=== PATIENT | male | born 1985 | race Caucasian/White ===

== ENCOUNTER 2016-09-11 04:15 | Inpatient (IN) | payer OTHER ==
--- NOTE | 2016-09-06 14:55 | History & Physical Pre-Op ---
General Information and HPI MD Statement: I have seen and personally examined MONY LIN and documented this H&P. The patient is a 30 year old M who presented with a patient stated chief complaint of [excruciating back pain and right leg pain over years duration This began on the morning without any definite trauma. It initially started in the back. This is accompanied by a gradual onset of pain in his right leg down to his foot]. Source of Information: patient Exam Limitations: no limitations History of Present Illness: Similarly no definite trauma with back pain, which he felt was divided with sleeping Betley, this was accompanied by gradual onset of pain in his right leg down to his foot. His symptoms are worse with bending sitting and lying improve with medication. He complains of tingling down his right leg and foot. He denies any bowel bladder or sexual dysfunction. He underwent physical therapy from December 2015 and a series of injections which appeared to be less successful As time went on. Allergies/Medications Allergies: Coded Allergies: NO KNOWN ALLERGIES (09/05/16) Home Med list Azilsartan Med/Chlorthalidone (Edarbyclor 40-12.5 MG Tablet) 40 MG-12.5 MG TABLET 1 TAB PO DAILY BP (Reported) Cyclobenzaprine HCl 10 MG TABLET 1 TAB PO PRN SPASMS (Reported) Ibuprofen/Famotidine (Duexis 800-26.6 MG Tablet) 800 MG-26.6 MG TABLET 1 TAB PO AD PAIN (Reported) Tramadol HCl 50 MG TABLET 1 TAB PO PRN PAIN (Reported) Compliance With Home Meds: UNKNOWN Past History Medical History Blood Transfusion Hx: No Type of Reaction: Anaphylaxis (none) Neurological: see H&P EENT: NONE Cardiovascular: NONE Respiratory: NONE Gastrointestinal: NONE Hepatic: NONE Renal: NONE Musculoskeletal: NONE Psychiatric: NONE Endocrine: NONE Blood Disorders: NONE (1 mL) Cancer(s): NONE INTERNATIONAL MANAGER/Reproductive: NONE Other Medical Hx: None Of significance History of MRSA: No History of VRE: No History of CDIFF: No Isolation History: Standard Pneumonia Vaccine Status: Unknown if ever received Influenza Vaccine Status Unknown if ever received Tetanus Status: up to date Surgical History Pertinent Surgical History: none Past Family/Social History Psychosocial History Where Do You Live? Home Who Do You Live With? self Services at Home None Primary Language: Thai Smoking Status: Current Everyday Smoker ETOH Use: occasional use (5 drinks a week) Illicit Drug Use: denies illicit drug use Living Will? unknown Power of Hearing Screener/HCP? unknown Name of POA/HCP: Dr. Dick Other Social History: None Functional Ability ADLs Independent: dressing. Ambulation: independent IADLs Independent: shopping. Employment History Employment: Employed Profession/Employer: [employer] Review of Systems Review of Systems: Normal bowel bladder Review of Systems Constitutional: Reports: no symptoms. EENTM: Reports: no symptoms. Cardiovascular: Reports: no symptoms. Respiratory: Reports: no symptoms. GI: Reports: no symptoms. Genitourinary: Reports: no symptoms. Musculoskeletal: Reports: no symptoms. Skin: Reports: no symptoms. Neurological/Psychological: Reports: other (sciatica). Hematologic/Endocrine: Denies: no symptoms. Immunologic/Allergic: Denies: no symptoms. All Other Systems: Reviewed and Negative Colonoscopy Testing Status: Unknown if test ever done Comments His symptomatology is purely spinal Exam & Diagnostic Data Last 24 Hrs of Vital Signs/I&O Intake & Output 09/06 1600 09/06 0800 09/06 0000 Intake Total Output Total Balance Patient 160 lb Weight Physical Exam: Not available Physical Exam General Appearance Alert, Oriented X3, Cooperative, Moderate Distress Skin No Rashes HEENT Atraumatic Neck Supple Lymphatic Axillary nl Cardiovascular Regular Rate Lungs Clear to Auscultation Abdomen Soft Neurological Normal Speech, Normal Tone, decreased range of motion bending of his back. He is able to stand heels and tiptoes. Right extensor hallucis longus. Straight leg raising on the right manifested as back pain Extremities No Clubbing Vascular Normal Pulses Breasts noncontributory Reproductive (MALE) Normal male genitalia Rectal deferred Last 24 Hrs of Labs/César: INR and PTT within normal limits Diagnostic Data ITS Data Unobtainable at this time (O) EKG Results C medical clearance CXR Results no Lesions Other Results MRI shows that have been disc at L4 5 L5-S1, this disc left-sided L4-L5 and right-sided L5-S1 Assessment/Plan Assessment/Plan: #1-spondylosis L4 5 L5-S1 #2- sciatica As Ranked By This Provider Problem List: 1. Headache 2. Corneal abrasion due to contact lens Assessment/Plan #1 spondylolisthesis L4 5 L5-S1 #2 sciatica right sided Attending MD Review Statement Attending Statement Attending MD Statement: examined this patient, reviewed images Attending Assessment/Plan: This patient has been examined by me and discussed indications for surgery alternative risks and possible complications decided to proceed with this
[~2016-09-11] VITALS: Ht 172.7 cm; Wt 72.6 kg
[~2016-09-11 04:15] MED LIST: CYCLOBENZAPRINE10 M1 PO; DUEXIS 800-26.1 EACH PO; EDARBYCLOR 40-1 EACH PO; TRAMADOL HCL50 M1 PO
--- NOTE | 2016-09-11 15:09 | Operative Report ---
Operative/Inv Procedure Report Surgery Date: 09/11/16 Name of Procedure: 1 left hemilaminectomy L4-5 with mesial facetectomy enlarged foraminotomy 2 preparation of space for fusion L4 5 3 insertion of TLIF fusion cage, tit FRANSISCO a Pre-Operative Diagnosis: #1 lumbar spondylosis L4 5 L5-S1 #2 lumbar radiculopathy S1, consecutive 2 spondylosis #3 lumbar instability L4 5 L5-S1 Post-Operative Diagnosis: Same Estimated Blood Loss: 200cc Surgeon/Rn Homecare: MD Georgie Jaffe MD(cosurgeon) Anesthesia: general endotracheal tube Monitors: Neurophysiology monitoring from neuro alert IV Fluids: As per anesthesia Implants: #1 11 x 26 x 4 TITAN cage at L4 5 #2 11 x 22 x 4 Titan cage at L5-S1 #3 pedicle screws as per Georgie Hatch MD's note Urine Output: As per anesthesia Drains: 2 Hemovacs Specimens: HNP L4 5 and L5-S1 Microbiology: Urine Tourniquet: None. Complications: None Condition: Stable Operative Indication: 40-year-old male with long-standing history of mechanical back pain complicated by some element of right sided radiculopathy Was noted to have a right disc herniation at L5-S1 and central disc herniation at L4 5 however the greater part of his symptoms as probably due to instability and collapse on the spondylotic basis at L4-L5 and L5-S1 Indication for surgery alternative risks and possible complications were discussed at length patient elected to have surgery performed O guarantees given all questions answered Operative/Procedure Note Note: The patient was intubated supine then placed prone on the Curtis table with all the surfaces required being verified and all pressure points were controlled. The patient received 2 g of intravenous antibiotics. He was under continuous neurophysiological monitoring. The back was prepped and draped in usual sterile manner and incised with the plasma blade knife and sharp dissection was carried down to the aponeurosis and dissection was then carried out on both sides of the aponeurosis in a subperiosteal fashion onto the lamina over the facets and onto the transverse processes of L4-L5 and the alae of the sacrum bilaterally A film was obtained showing a marker under the TRAM spinous process and the lamina of L5 Attention was then directed to the left side at L4 5 where using 3 and 4 mm Kerrisons a very wide hemilaminectomy was then performed with extension into the medial facet were medial facetectomy was performed and likewise down to the foramen were very wide foraminotomy was accomplished. Following that the ligamentum flavum was removed Libby retraction allowed us to identify the herniated disc which was then cauterized and incised and disc material removed with straight and up-biting pituitary and sent for specimen Following this the size of the space was verified with the appropriate dilators from the tightened system and this was carried on at the same time that cutting device side of the same instrument was used to remove more soft tissue. It was felt that this would tolerate an 11 mm cage. Points aggressive curettes were used to prepare the surfaces for fusion and the space was then trialed with an 11 mm trial and verified to be the correct size. The knee master graft sponge was then reconstituted with 3 mL of the patient's own blood and partially used to pack the space anterior to the cage. Under C-arm visualization and continuous neurophysiological monitoring a 11 x 26 x 4 Titan cage was then inserted in the standard fashion and verified to be in all projections to be in satisfactory position and this was done without any changes in the neurophysiological recordings Following this a similar procedure was then accomplished on the right-hand side at L5-S1 this will be dictated by Georgie Hatch MD. Following this the Stealth was registered and under Stealth guidance pedicle screws were inserted into L4- L5 and S1 bilaterally. The surface of the transverse processes and the lateral aspect of the spine at L4-L5 and S1 were drilled down and prepared for fusion autograft and allograft masses were then created and placed laterally the pedicle screws was inserted were connected to miguel after verifying the integrity and once this was accomplished vancomycin powder was left in both gutters Hemovac drains were left side of the midline with an epidural component and the muscle was closed in depth with 0 Dexon muscle and aponeurosis 0 Dexon subcutaneous and subcuticular tissue with 2-0 Dexon after placing more vancomycin on the aponeurotic surface in the skin was closed with stainless steel oral a full dressing was applied and the patient was in satisfactory condition upon removal to the recovery room. Findings: 1 exploration P as described above to gross instability at [facility] pronounced at L5-S1 on placement of dilators Discharge Disposition: PACU Additional Comments: Neurophysiological tracings remained normal apart on one of the screws and this will be dictated separately CC: STEVE MATUTE,GEORGIE Eisenberg
--- NOTE | 2016-09-11 15:41 | RADIOLOGY REPORT ---
EXAMINATION: XR LUMBOSACRAL SPINE XR LUMBOSACRAL SPINE CLINICAL INFORMATION: 30-year-old male undergoing L4 - during performance of L4-L5 and L5-S1 laminectomy and fusion in the operating room. COMPARISON: MRI of lumbar spine, 08/30/2016. TECHNIQUE: Fluoroscopic imaging assistance was provided to the operating room. AP and lateral spot fluoroscopy images of the lumbar spine are submitted into the electronic picture archive. Also, intraoperative CT imaging of the lumbar spine was performed. FINDINGS: Lumbosacral spine: The spot fluoroscopy images demonstrate soft tissue retractors and placement of interbody fusion devices at L4-L5 and L5-S1. FLUOROSCOPY TIME was 1 minute. Dose was 17.2 mGy. Lumbosacral spine: The intraoperative CT images demonstrate left L4 laminectomy and bilateral L5 laminectomy defects, status post placement of interbody fusion devices at L4-L5 and L5-S1. There is postoperative gas within the paraspinal soft tissues and epidural space of the lower lumbar spine without evidence of epidural hematoma. FLUOROSCOPY TIME was 9.85 sec. DAP was 386.82 Rcm2. IMPRESSION: Fluoroscopic imaging assistance was provided to the operating room during performance of lower lumbar laminectomies and spinal fusion. Please refer to the operative report.
--- NOTE | 2016-09-11 16:39 | Admission Core Measures ---
Acute Coronary Syndrome Inclusion Criteria ACS Diagnosis No Inpatient Core Measures LDL Reminder: If No, please order W/I first 24hr of stay Congestive Heart Failure Inclusion Criteria CHF Diagnosis No Cerebrovascular accident Inclusion Criteria CVA/TIA Diagnosis No Inpatient Core Measures Bedside Swallow Eval Reminder: If BSE failed, place ST order Antithrombotic Reminder: Order Antithrombotic Medication by end of day 2 Antithrombotic Reminder: Document Reason Antithrombotic Not ordered by end of day 2 AFIB/Flutter Reminder: If Present, add to problem list AFIB/Flutter Reminder: Order Anticoag Medication for pts with AFIB/Flutter Atherosclerosis Reminder: If Present, add to problem list LDL Reminder: If No, please order W/I first 24hr of stay PT Order Reminder: If No, please order Venous thromboembolism Inpatient Core Measures VTE Risk Factors: Surgery VTE Prophylaxis Ordered Inpt Mechanical (ALPS/TEDS) No [facility] VTE prophylaxis d/t No contraindications No VTE Pharm Prophylaxis d/t Surgical contraindication Inclusion Criteria - Per Current guidelines, there needs to be overlap - treatment for the first 5 days of Warfarin therapy. - Parenteral Anticoagulation (IV or SC) needs to be - given along with Warfarin therapy. VTE Diagnosis No VTE Type NONE VTE Confirmed by (Test) NONE Problem List As ranked by this Provider includes Assessment & Plan 1. Lumbar spine instability 2. S/P lumbar fusion 3. Hypertension HOME MEDS Home Med List Azilsartan Med/Chlorthalidone (Edarbyclor 40-12.5 MG Tablet) 40 MG-12.5 MG TABLET 1 TAB PO DAILY BP (Reported) Cyclobenzaprine HCl 10 MG TABLET 1 TAB PO PRN SPASMS (Reported) Ibuprofen/Famotidine (Duexis 800-26.6 MG Tablet) 800 MG-26.6 MG TABLET 1 TAB PO AD PAIN (Reported) Tramadol HCl 50 MG TABLET 1 TAB PO PRN PAIN (Reported)
[2016-09-11 17:50] VITALS: BP 110/68
--- NOTE | 2016-09-11 19:52 | NUR ---
NURSING NOTE: PT ARRIVED TO FLOOR AT 1749 VIA BED. PT A&O, VSS CHARTED. DILAUDID CYBER SYSTEMS OPERATIONS SPECIALIST IN PLACE. GANN TO BSD. DSG TO BACK CDI. LATONIA DRAIN X2 IN PLACE. LARGE RED AREA NOTED TO MID CHEST, LENCHO BARNES CAME TO BEDSIDE TO ASSESS. PT RESTING COMFORTABLY IN BED. WILL CONTINUE TO MONITOR.
[2016-09-11 20:05] VITALS: BP 110/60
[2016-09-11 22:00] VITALS: BP 106/64
[2016-09-12 02:21] VITALS: BP 110/60
--- NOTE | 2016-09-12 04:43 | PN- Orthopedic ---
Subjective Subjective: Post op check: Patient s/p lumbar posterior stabilization, L4-S1. Initially patient complained of redness and discomfort to his skin on his chest. He felt that overall his back discomfort was tolerable. He denied chest pain, shortness of breath, and difficulty breathing. He denies nausea and vomitting. He has vyas catheter, he has yet to void. Objective Vital Signs and I&Os Vital Signs Date Time Temp Pulse Resp B/P Pulse O2 O2 Flow FiO2 Ox Delivery Rate 09/12 0221 98.6 76 18 110/60 92 Room Air 09/11 2200 97.6 75 21 106/64 92 Room Air 09/11 2004 97.5 78 17 110/60 93 Room Air 09/11 1750 97.7 82 18 110/68 96 Room Air Room Air Intake & Output 09/12 0809/12 1600 09/11 0809/11 0000 09/10 1600 Intake Total 640 Output Total 350 1050 Balance -350 -410 Intake, IV 400 Intake, Oral 240 Output, 50 Drainage Output, Urine 350 1000 Patient 160 lb Weight Physical Exam: General: Alert and oriented x3, no acute distress Cardiac: RRR, s1s2 Pulmonary: Bilateral lung sounds clear to auscultation Abdomen: Non-tender, non-distended Extremities: Moves all extremities, distal sensation intact. Skin warm and well perfused. DP pulses palpable bilaterally. Bilateral calves soft and non- tender Surgical site: Lumbar spine. Drain holding suction. Dressing dry and intact Assessment/Plan Assessment/Plan This is a 30 year old male, POD 0, s/p lumbar stabilization L4-S1 -Dilaudid certified court interpreter today -IV toradol and IV offirmev to be scheduled -Diet as tolerated -OOB with brace as tolerated -PT eval tomorrow -D/C vyas catheter in am -ALPS for dvt ppx -Ancef 2 grams q8 hours to continue while drain in place -Will d/w Dr. Hatch Core Measures/Miscellaneous Venous Thromboembolism VTE Risk Factors: Age > 40, Surgery VTE Contraindications: No Contraindications VTE Prophylaxis Ordered Inpt: Mechanical (ALPS/TEDS) VTE Diagnosis: No VTE Type: NONE VTE Confirmed by (Test): NONE Beta Jerry Is Beta Jerry a Home Med? No Antibiotics Is Patient on Antibiotics? Yes If Yes: prophylaxis
[2016-09-12 06:24] VITALS: BP 106/68
--- NOTE | 2016-09-12 07:31 | PN- Orthopedic ---
Subjective Subjective: The patient was seen this morning postoperatively day #1. He reports that his pain is under somewhat adequate control but when he falls asleep and wakes he still a significant amount of pain. He has no complaints of current time denies any numbness, weakness, or tingling in his extremities. Objective Vital Signs and I&Os Vital Signs Date Time Temp Pulse Resp B/P Pulse O2 O2 Flow FiO2 Ox Delivery Rate 09/12 623 98.5 66 19 106/68 94 Room Air 09/12 0221 98.6 76 18 110/60 92 Room Air 09/11 2200 97.6 75 21 106/64 92 Room Air 09/11 2004 97.5 78 17 110/60 93 Room Air 09/11 1750 97.7 82 18 110/68 96 Room Air Room Air Intake & Output 09/12 0800 09/12 0000 09/11 1600 09/11 0800 09/11 0000 09/10 1600 Intake Total 1450 640 Output Total 1085 1050 Balance 365 -410 Intake, IV 850 400 Intake, Oral 600 240 Output, 135 50 Drainage Output, Urine 950 1000 Patient 160 lb Weight Physical Exam: Gen.: Alert and in no obvious distress Skin: Warm and dry Extremities: Patient was all 4 extremities with equal strength. Gross motor and sensory are intact. Bilateral lower extremities are warm without calf tenderness or significant edema. Surgical dressing is slightly blood tinged at the inferior aspect but otherwise intact. There are [address] holding suction with serosanguineous drainage in the bulbs. Assessment/Plan Assessment/Plan Assessment: 30-year-old male status post lumbar posterior stabilization L4 through S1 postoperative day #1. The patient is progressing as expected and his pain is under relatively adequate control. Plan: Hep-Lock IV fluids and DC Alejandre catheter Continue IV antibiotics until the drains are removed Out of bed and ambulate with brace and physical therapy DC Dilaudid FURNACE WORKER and start on when necessary IV Dilaudid and Percocet GI and DVT prophylaxis Follow-up morning labs Core Measures/Miscellaneous Venous Thromboembolism VTE Risk Factors: Age > 40, Surgery VTE Contraindications: No Contraindications VTE Prophylaxis Ordered Inpt: Mechanical (ALPS/TEDS) VTE Diagnosis: No VTE Type: NONE VTE Confirmed by (Test): NONE Beta Jerry Is Beta Jerry a Home Med? No Antibiotics Is Patient on Antibiotics? Yes If Yes: prophylaxis
--- NOTE | 2016-09-12 10:01 | Operative Report ---
Operative/Inv Procedure Report Surgery Date: 09/11/16 Name of Procedure: 1) L5 Right Lumbar Hemilaminotomy, L5-S1 Right Posterior Osseous Element Resection And Decompressive Discectomy (Lucille/Steve) 2) L4 Left Lumbar Hemilaminotomy, L4-L5 Left Posterior Osseous Element Resection And Decompressive Discectomy (Lucille/Steve) 3) L5-S1 Lumbar Posterior Midline Approach For Multicolumn (Combined Right Transforaminal Interbody Anterior Column And Posterobilateral Inter-Transverse- Process Posterior Column Instrumented) Arthrodesis Following Separate And Distinct Decompressive Procedure (Steve-Lucille Co-Surgeons) 4) L4-L5 Lumbar Posterior Midline Approach For Multicolumn (Combined Left Transforaminal Interbody Anterior Column And Posterobilateral Inter-Transverse- Process Posterior Column Instrumented) Arthrodesis Following Separate And Distinct Decompressive Procedure (Steve-Lucille Co[facility]Surgeons) 5) L5-S1 Right Transforaminal Oblique Lumbar Interbody Instrumentation Implantation (Steve/Lucille) 6) L4-L5 Left Transforaminal Oblique Lumbar Interbody Instrumentation Implantation (Steve/Kristiek) 7) L4-S1 Lumbar Segmental (Multiple Motion Segment) Posterobilateral Instrumentation (Three Instrumented Vertebral Segments - L4, L5 And S1) ( Steve/Lucille) 8) Stealth Frameless Stereotactic Computer-Assisted Spinal Navigational Placement Of Instrumentation (Steve/Lucille) 9) Preparation And Implantation Of Morselized Allograft Substitute Osteopromotive Material (Steve) 10) [place], Preparation And Implantation Of Local Morselized Autograft ( Steve) 11) Placement Of Local Surgical Site Prophylactic Antibiotic Vancomycin Powder (Steve) [Not Separately Coded] 12) Intraoperative Assessment Of Neurophysiological Monitoring (Preoperative Baseline And Intraoperative Continuous EMG, SSEP And MEP Recordings) (Lucille) [ Not Separately Coded] 13) Intraoperative Electrophysiological Stimulation Of Pedicle Screws ( Steve) [Not Separately Coded] 14) Intraoperative Subspecialty Interpretation Of O-Arm CT Scan x 2 (Steve) [Not Separately Coded] Pre-Operative Diagnosis: Preoperative Diagnoses (Planned For Surgical Treatment Or Directly Relevant To Surgical Plan): 1) L5-S1 And L4-L5 Degeneration Of Lumbar Intervertebral Disc 2) Severe, Intractable, Functionally Altering Degenerative Discogenic Lower Back Pain 3) L5-S1 And L4-L5 Lumbar Intervertebral Disc Disorder With Radiculopathy 4) Right Posterolateral Lower Extremity Lumbar Distribution Radiculopathy 5) L5-S1 And L4-L5 Degenerative Displacement Of Lumbar Intervertebral Disc Post-Operative Diagnosis: Same as preoperative diagnosis list with the addition of: Intraoperatively And Postoperatively Additionally Identified Surgically Treated Or Surgically Relevant Diagnoses: 1) L5-S1 And L4-L5 Expected Intraoperative And Possible Postoperative Segmental Lumbar Spinal Instability 2) Expected Acute Postoperative Pain Requiring Initial Inpatient Treatment 3) Expected Acute Postoperative Spasm Requiring Initial Inpatient Treatment 4) Presence of L4-S1 Lumbar And Lumbosacral Anterior Column Interbody And Posterior Column Trans-Segmental Spinal Instrumentation Implants 5) Acute L5 And L4 Laminar As Well As L5-S1 And L4-L5 Intervertebral Level Postprocedural Status 6) L4- S1 Postprocedural Multicolumn Arthrodesis Status Estimated Blood Loss: 500 cc EBL, See anesthesia records for details. Surgeon/Tapering Machine Operator: GEORGIE WILSON MD - Admitting Orthopaedic Spine Surgeon MARIYA ADKINS MD - Primary Consulting Neurological Surgeon Regarding Orthopaedic Spine Portion Of Procedure Dictated Here: Georgie Wilson M.D. - Orthopaedic Spine Surgeon (Co-Surgeon/Primary Surgeon) Mariya Adkins M.D. - Neurosurgeon (Co-Surgeon/Tapering Machine Operator Surgeon) Anesthesia: general endotracheal tube Monitors: Standard monitoring per anesthesia. Standard Intraoperative EMG, SSEP, MEP and hardware stimulation electrophysiological monitoring (NeuroAlert) Refer to anesthesia and intraoperative electrophysiological monitoring records for details. IV Fluids: Standard anesthesia fluid management without requirement for additional or emergent fluid resuscitation. Refer to anesthesia records for details. Implants: Implants Placed: Interbody Implants: Titan Spine TO Titan Oblique TLIF Rotating Lordotic Titanium Interbody Cage Implants: 1 x 11 mm Height x 9 mm Width x 26 mm Depth x 4 Degree Lordosis At L5-S1 From The Right 1 x 11 mm Height x 9 mm Width x 26 mm Depth x 4 Degree Lordosis At L4-L5 From The Left Posterobilateral Implants: Transpedicular Segmental (Multiple Motion Segment) Lumbar Construct: [email or web address] System [id number] Lumbar Construct: Solara Dual Thread Pitch Pedicle Screws 2 x 40 mm Length x 6.5 mm Diameter Pedicle Screws Placed Bilaterally At S1 2 x 50 mm Length x 6.5 mm Diameter Pedicle Screws Placed Bilaterally At L5 2 x 50 mm Length x 6.5 mm Diameter Pedicle Screws Placed Bilaterally At L4 Solara [place] Chrome Plus 4.75 mm Diameter Rods: 1 x 50 mm Length Pre-Contoured John Placed From L4 To S1 On The Right 1 x 60 mm Length Pre-Contoured John Placed From L4 To S1 On The Left Solara System Set Screws 6 x Solara System Set Screws Placed Bilaterally At L4, L5 And S1 Graft Material Placed: Morselized Locally Harvested Autograft Harvested From Posterior Osseous Element Decompression (Lamina And Facets) Placed In The Intervertebral Spaces L5-S1 And L4-L5 (Within The Central Chamber Of Interbody Cages) Placed In Both Posterolateral Spaces L4-S1 (Divided Equally And Distributed Evenly Bilaterally) Mosaictronic Elbert DBF 12 cc Total = 2 Containers (6 cc Each) 6 cc Placed In Interbody Spaces Anterior To And Small Amount Within Interbody Cages L5-S1 And L4-L5 (3 cc at each space) 6 cc Placed In Posterolateral Spaces L4-S1 (Divided Equally And Distributed Evenly Bilaterally With 3 cc On Each Side) Medtronic Progenix 10 cc Total = 1 Syringe (10 cc Each) 10 cc Placed In Posterolateral Spaces L4-S1 (Divided Equally And Distributed Evenly Bilaterally With 5 cc On Each Side) Medtronic Mastergraft Strips 12 cc Total - 1 Package (12 cc = 10 cm x 2.0 cm x 0.6 cm Per Strip; 1 Strip Per Package) 12 cc Placed In Posterolateral Spaces L4-S1 (Divided Equally And Distributed Evenly Bilaterally With 6 cc On Each Side) Urine Output: Refer to anesthesia records for details. Drains: Large Bore (19 Hungarian) Subfascial LATONIA x 2 to dual medium suction bulb reservoirs Specimens: Lumbar disc material sent to pathology for analysis per hospital protocol. Complications: None Condition: Initial Preoperative Condition: The patients condition was stable to the operating room without vital sign, hemodynamic, cardiopulmonary or other organ system instability and without new neurovascular or musculoskeletal functional deficit compared to normal preoperative assessment as documented in office notes and Admission History and Physical Examination reports. The patient had been cleared preoperatively as optimized for surgical intervention by his primary care physician (Bradford Dick M.D.) and all requested consulting specialty services prior to admission. There were no significant adverse changes evident in the patients condition between the preoperative evaluations (surgical clearance and admission history & physical assessments) and the immediate preoperative (holding area) evaluation. Intraoperative Condition: The patient was stable throughout the procedure without vital sign, cardiopulmonary or other monitoring changes, lability, instability or abnormality. No significant or persistent intraoperative neurophysiological monitoring abnormalities or changes were reported. See the intraoperative anesthesia and electrophysiological monitoring records for details. Final Postoperative Condition: The patient was extubated and stable to the recovery room with no new deficit or change compared to normal preoperative neurological and musculoskeletal assessment based on limited evaluation during initial recovery from anesthesia. The patient demonstrated grossly normal spontaneous motion of all extremities initially and later was able to demonstrate normal motion and function to command in all extremities once fully awake upon early recovery from anesthesia. There was no significant swelling evident anywhere in the lower extremities and his tissues were soft to palpation with no tenderness. There was no pain with active and passive distal extremity motion and there was no postoperative suggestion of the development of an urgent or emergent condition associated with prolonged prone positioning for surgery related to the deep soft tissue swelling or lower extremity vascular abnormality. 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 His symptoms originally began insidiously approximately one year ago without specific causal event, injury or significant change in activity. He has failed a comprehensive conservative management program including pain management and injections with good compliance. The findings on preoperative radiologic studies (radiographs and MRI) correlate well with the level, side, severity and chronicity of his preoperative symptoms and signs. Although the patient denies left radicular symptoms, his left L4-L5 disk herniation is associated with noticeable thecal sac indentation and deviation with the high intensity zone on MRI suggesting that this is likely contributing to inflammatory meningeal irritation and back pain in addition to the mechanical discogenic pain from his degenerative disk disease. Therefore, decompressive discectomy at the L4-L5 level on the left will be performed to address this meningeal source for his pain in addition to the L5-S1 right decompressive discectomy required to address the compressive herniation more associated with his leg pain. His recent and past medical history significant and relevant to his orthopaedic surgical operative and perioperative care includes medication- controlled hypertension. The patient denies past surgical history and specifically denies previous history of lumbar or other spine surgical procedures. He has had spinal injections without longstanding relief but also without complications. He denies any adverse reactions to any prior sedation, anesthetic or procedures. He reports no other past medical or surgical history pertinent to his current treatment recommendations, surgical intervention or planned perioperative care. The patients active preoperative medications are detailed in the admission history and physical report (refer to H&P document for details) and include Edarbyclor, Cyclobenzaprine and Tramadol. His anti- inflammatory medication was held at least 10 days prior to surgery per protocol. He denies any medication or supplement use that would cause an anti-coagulant effect. His medications are not otherwise pertinent to the current surgical plan. The patient denies any history of anaphylactic, anaphylactoid or other significant non-anaphylactic allergic or other reactions or sensitivities to medication or non-medication environmental allergens. He is a moderate current and active 1 pack per day cigarette smoker and reports social alcohol consumption only. Immediately preoperatively additional history was presented that his alcohol consumption might be more regular (daily or several times per week) but there was nothing to suggest a significant deviation from his prior history or a significant increase in his surgical or anesthetic risk associated with this history. There was also nothing to suggest the need for additional protocols, precautions or pharmacological treatment and close monitoring was felt to be sufficient. His social history was otherwise unremarkable with no other reported surgical or other health social risk factors. The patients functional level has been steadily decreasing and his activity-related pain got to the point several weeks prior to surgery that he was designated at temporary total disability from work. This disability designation and level of activity restriction will continue until at least 6-12 weeks postoperatively depending on his progress with a standardized postoperative rehabilitation program. Standard preoperative laboratory study results were reviewed by the primary surgeon and the patients clearing medical physicians and were unremarkable with no contraindications to surgical interventions or concerns raised requiring specific perioperative monitoring. The above medical, surgical, medication, allergy and other clinical information was reviewed throughout the hospital admission and preoperative confirmation process but did not alter preoperatively determined risk assessment, surgical recommendations, treatment or perioperative management plans in this case. Treatment options were discussed in detail directly with the patient and all of his questions were answered to his satisfaction. After careful and appropriate consideration the patient elected to proceed with the planned operative procedure of L5-S1 right and L4-L5 left hemilaminotomies, subtotal medial facetectomies, partial unroofing foraminotomies, decompressive discectomies and complete neural element decompression followed by instrumented interbody and posterobilateral lumbar autograft and osteopromotive allograft substitute fusion. The patient also consented to any additional indicated procedure based on intraoperative findings. He has sufficiently severe symptoms and functional limitations related to this condition, has failed a comprehensive conservative management program to his maximal tolerance despite good compliance, has close correlation between clinical presentation and preoperative studies, is medically optimized and cleared for surgical intervention, demonstrates good understanding and acceptance of the limitations of surgery, appears to have appropriate goals for surgical outcome, and is more likely to achieve those goals with the planned surgical procedure than with other options for treatment thus making him a reasonable candidate for surgical intervention. Arrangements for hospital admission and surgery were made through Dr. Sibley office for combined Orthopaedic Spine and Neurological Surgery co-surgical procedure and perioperative care. Refer to Dr. Wilson's Admission History & Physical Examination report for additional details regarding hospital admission. In addition to the general risks of all surgical procedures (bleeding, infection, anesthesia, fluid administration, transfusion, medication, medical and other general risks), the general risks of all orthopaedic and spinal procedures (positioning, tissue and nerve pressure or tension) as well as specific risks of the planned procedure were reviewed with the patient in detail. These risk include but are not limited to tissue injury or exacerbation of prior injury (nerve root, peripheral nerve, meningeal, blood vessel, bone, disk, joint, fascia, ligament, tendon, muscle or other tissue injury), fracture and/or instability of spinal elements and motion segments, failure of spinal implants (fracture, loosening, or subsidence), failure of fusion, worsening of spinal alignment, heterotopic or ectopic scar or bone formation, adverse postoperative symptoms (new, persistent or exacerbated symptoms including pain, dysesthesias, paresthesias, headaches, dizziness, and/or other neurologic, musculoskeletal or other system symptoms), development of new or worsening of preexisting medical conditions or complications (arthritis, blood clots, cardiac events, stroke, acute organ failure of any organ, other medical conditions potentially worsened by trauma, anesthesia, prone positioning, surgery or immobility), inability to complete the procedure as planned, failure to improve symptoms or deficits or to achieve treatment goals, and need for further treatment and/or reoperation at the current or a related site for a similar or related pathological process. The potential complications associated with prolonged prone positioning including but not limited to facial, torso or extremity skin (pressure and swelling phenomenon, ulceration, scarring), soft tissue (scarring, ossification), nerve (pressure or stretch palsy or plegia), joint (stiffness), facial (swelling), ocular (blindness), pulmonary (restriction ), and other internal organ (failure) complications were reviewed. Potential for partial or complete, global or regional loss of motor, sensory, coordination , balance, ambulatory, bladder, bowel, sexual and other neurological or musculoskeletal function was reviewed. Where known, the established risks and benefits associated with the use of bone graft substitutes was reviewed in detail and accepted by the patient. The theoretical but as yet undefined risks of the use of new technology including grafts and graft substitutes, implant materials and designs, and monitoring devices were discussed and accepted. Remaining potential complications were reviewed in inclusive risk categories ranging through all severity levels from temporary changes to catastrophic outcomes such as complete paralysis, organ system failure of any organ and . The patient understood and accepted that his risk was slightly above average for this category of procedure due to his progressive pre-operative normal (even non-vigorous) work and home activity and functional limitations, multiple levels of degenerative change and neural irritation. He also understood that his risk of personally significant functional limitation is higher than most patients because of his relatively young age and vigorous activity level, the nature of his work requiring greater than usual lifting, carrying, bending, twisting and repetitive motion activities and moderate axial load. His overall excellent health and fitness status likely mitigates but does not negate some of the risks and limiting prognostic factors described above. He also understood and accepted that, although there were significant risks of surgery and no guaranteed outcome, that surgical care was likely his best option to optimize chances for fulfilling his stated goals of return to his highest possible functional level with an acceptable level of overall treatment-related risk and was a superior option to no treatment, continued non-invasive care or other invasive treatment alternatives. After appropriate consideration he has decided to accept the risks associated with surgery in order to have the potential ( without guarantee) of benefits rather than accommodate to his symptoms or pursue the other primary options for evaluation and treatment including continued optimized non-operative care which are less likely to give as much long-term benefit but are also associated with less potential risk. The patient is an active smoker and the potentially severe implications of continued smoking on surgical recovery, fracture healing, functional recovery and general health were reviewed in detail. From an orthopedic perspective he was advised to stop smoking as quickly as possible and to maintain good balance between his nutritional intake with his exercise level. He will discuss these general health issues with his primary care physician so that they can be managed and optimized at the same time he is recovering from surgery. Where necessary the patients treatment goals were clarified, better defined or adjusted throughout the preoperative counseling process and immediately preoperatively so that they fell within a reasonable range and to assure that he clearly understood the limited predictability of such extensive spine surgical intervention. Signed operative consent was obtained directly from the patient with good understanding of all reasonable alternatives, indications, goals, expectations, limitations, risks and benefits of the planned procedure. The patient consented to the procedure being performed by Dr. Wilson and Dr. Adkins as co-surgeons with the assistance of any and all designated hospital and office outpatient practice team members. The patient was cleared as optimized for surgery by his primary care physician (Bradford Dick M.D.) and all requested consulting specialty services as well as both surgeon office evaluations. Operative/Procedure Note Note: Preoperative Holding Area Assessment/Preparation: The patient was evaluated in the preoperative holding area prior to surgery and no clinical changes or contraindications to surgical intervention were documented compared to the preoperative office and clearance evaluations. The patient was distally neurovascularly intact in lower extremities prior to surgery. The surgical plan and site were confirmed with the patient and preoperative paperwork was finalized. The region of the intended surgical site was cleansed, prepped and marked per protocol. The surgeons, anesthesia service , and operating room staff confirmed the patient identity, surgical procedure, and operative site as well as other clinical details with the patient in an initial documented preoperative confirmation (awake time out) prior to the administration of sedation or anesthesia. Surgical Procedure: Dr. Wilson and Dr. Adkins were present for and participated equally as co- surgeons in all clinically significant phases of the surgical procedure documented below. The set-up, positioning, navigation, interbody and posterobilateral arthrodesis, multicolumn instrumentation and closure portions of the procedure are described in greatest detail in this operative report. Refer to Dr. Edgar Neurosurgical operative report for additional details particularly regarding the electrophysiological monitoring, exposure, discectomies and neural element decompression portions of the procedure. Set-Up/Positioning/Exposure - The patient was brought to the operating room in stable condition and underwent uncomplicated induction of general anesthesia, intubation, and placement of all appropriate monitors, lines and catheters without difficulty. The set-up and positioning is described in greatest detail in this operative report. Administration of 2 grams of IV Ancef based on patient body mass was given for surgical prophylaxis and was completed at least 30 minutes prior to making an incision. This dose of antibiotics was repeated at 4 hour intervals throughout the procedure. The patient was positioned prone on the Curtis Table in standard fashion for a lower lumbar decompression and instrumented fusion taking care to protect and stabilize the spine during transfer, avoid positions of nerve stretch, pad all pressure points, and support the head without any pressure on the eyes using a foam head rest and head-holding frame. Electrophysiological monitoring leads were applied per standard monitoring protocol and baseline preoperative electrophysiological monitoring recordings were obtained which were within normal limits with no gross abnormalities noted. Sequential compression devices were placed circumferentially around both calves and activated per protocol once the patient was in final prone position. The surgeons, anesthesia care team, and operating room staff again documented the patient identity, surgical procedure, operative site and other critical details in a final documented preoperative confirmation (final time out) prior to beginning the procedure. Preoperative cross-table lateral fluoroscopic views were obtained with a skin marker in place to determine the optimal level for incision, to correlate with preoperative radiologic study findings, to document optimized intraoperative prone lumbar alignment, and to confirm acceptable radiologic visualization of the operative levels. Spinal alignment was unchanged compared to preoperative studies and there was no suggestion of previously unrecognized gross malalignment or instability at any level. Bacitracin (50,000 Units) irrigation was used throughout the procedure. Wherever irrigation is documented for this procedure, this concentration of antibiotic irrigation was used unless otherwise specified. Intraoperative electrophysiological monitoring was used throughout the case per standard protocols. The incision, approach, exposure, hemostasis, retractor placement, fluoroscopic identification of intended operative levels, hemilaminotomies, subtotal facetectomies, partial unroofing foraminotomies, decompressive discectomies, central and foraminal neural element decompressions are dictated in greatest detail by Dr. Adkins in his Neurosurgery operative report. Refer to the Neurosurgery operative report for additional details regarding those portions of the procedure. The dissection and decompressive portions of the procedure will be briefly summarized in this report. After sterile prep and drape performed using standard technique with Iodine prep, the surgical field was draped using multiple layer side and central window drapes and an Ioban antimicrobial incise drape. A midline lumbar incision was then mapped, infiltrated with local anesthetic (0.5% Marcaine with 1:200,000 Epinephrine, and made overlying the intended operative levels using a #10 scalpel blade. Hemostasis was achieved using Bovie and Bipolar electrocautery or Aquamantys bipolar radiofrequency thermal hemostatic sealer beginning with the incision and continuing throughout the procedure with instruments and settings appropriate to each progressive level. The dissection was carried through the subcutaneous layer in line with the incision down to the midline lumbar fascia. The fascia was divided longitudinally on either side of the midline structures preserving the interspinous ligament at the level felt to most likely represent L4-L5 based on preoperative palpation and external marker radiologic localization. The dissection was then carried down both sides of the spinous process and over the lamina to the margin of the facet capsule which was preserved bilaterally. A [employer] instrument was placed under the lower edge of the upper exposed lamina into the interlaminar space taking care to maintain the position of the instrument just below the ventral surface of the inferior laminar margin and avoid migration into the canal. The marking instrument was well visualized and identified on lateral fluoroscopic view and confirmed to be beneath the L4 lamina at the L4-L5 level by surgeon and radiologist reading of the intraoperative radiograph. Dissection was then continued downward to L5-S1 until both levels were fully exposed from the upper laminar level of L4 to the sacral ala vertically and out to the tips of the bilateral L4 and L5 transverse processes and the sacral ala horizontally thus fully exposing the L4 and L5 laminae as well as the L4-L5 and L5-S1 interspaces for decompression and anterior column interbody instrumented fusion, the L4, L5 and S1 pedicle entry sites for placement of posterolateral pedicle screw instrumentation and the L4- S1 posterobilateral intertransverse spaces for posterior column fusion. Deep Gelpi and Cerebellar retractors were placed for optimal full horizontal and vertical exposure while minimizing pressure on the more superficial soft tissue structures so as to minimize risk of potential adverse effects associated with retraction. The retractors were also released or removed and the tissues thoroughly irrigated intermittently throughout the procedure so as to minimize prolonged tissue pressure effects. Laminectomy/Facetectomy/Foraminotomy/Neurolysis/Discectomy/Neural Decompression - Given the unilateral pathology at both levels, it was determined that optimal decompression could be achieved while maintaining as much posterior stability and posterior neural element protective osseous coverage as possible by performing an L4-L5 left and L5-S1 right hemilaminotomy decompression, posterolateral element resection and discectomy with preservation of the midline and contralateral structures at each level. This portion of the procedure was performed using standard techniques without complication and resulted in full neural element decompression and transforaminal access for interbody instrumentation. The L4-L5 level was addressed first on the left side. A tapered hemilaminotomy was performed by first dissecting in a subperiosteal plane under the leading edge of the L4 lamina with a curved curette to insure that there were no adhesions and then resecting the inferior laminar edge in a tapered fashion up to the mid-laminar level taking care to avoid wide hemilaminotomy resection at the upper margin so as to avoid excessively thinning the pars interarticularis at that level. Given the need for wide access to the disk space in the transforaminal region for interbody instrumentation, a wide, subtotal L4-L5 left medial facetectomy and partial medial unroofing foraminotomy was performed using standard undercutting technique with Kerrison rongeurs, preserving the lateral facet margin to protect the lateral canal and foramen as well as to serve as a stabilizing osseous surface for posterolateral arthrodesis ingrowth. All decompressed bone was harvested, further debrided of fibrous tissue, and morselized as local corticocancellous autograft for later reimplantation. With the posterolateral osseous resection completed, the ligamentum flavum was exposed through this hemilaminotomy opening and was dissected from its attachment superiorly, laterally and inferiorly. This flap of ligamentum was then elevated using a curved curette while carefully dissecting and lysing any adhesions to the meningeal coverings of the traversing and exiting neural elements. More epidural adhesions were noted than would normally be the case for this first time surgery. This was felt to be related to the (several years) duration of symptomatology and pathology. This finding also correlated with the erythematous inflammatory reaction seen in the epidural space intraoperatively and the moderate neural element irritability noted during very gentle nerve root retraction (which improved almost immediately after decompression). All of these findings also correlated with the high intensity zones seen within both disk herniations on preoperative MRI. Although the degree of epidural neurolysis required for this procedure was greater than the average for this type of non-revision procedure, it was not felt to be excessive , was felt to be generally consistent with the other coded portions of the procedure and was therefore not separately coded as a distinct procedural service. Once the epidural tethering had been released the ligamentum was resected piecemeal to fully expose the underlying neural elements which could be safely and gently retracted with a Love nerve root retractor to expose the underlying disk space. The moderate-sized degenerative disk herniation fragment noted on MRI was confirmed intraoperatively and was found to be subligamentous and contained but still causing significant elevation, deviation, elongation, unidirectional compression and erythematous irritation of the traversing neural elements (nerve root and the lateral margin of the thecal sac) even after significant dorsal osseous and soft tissue decompression confirming the indication for separate and distinct decompressive discectomy. These neural elements showed evidence of ventral surface inflammatory erythematous response on visual inspection and initial neuromuscular hyperactive response to retraction consistent with preoperative MRI findings. This hyperactivity resolved rapidly after decompression and was not associated with electrophysiological monitoring changes. Moderate epidural fibrosis was again noted on the ventral surface of the traversing neural elements consistent with the other intraoperative findings and this was carefully dissected until the meninges were untethered and could be safely mobilized. As noted above this dissection was greater than would usually be required for a non-revision discectomy but did not require separate procedural service. Throughout the decompression and neural element mobilization portion of the procedure, hemostasis of epidural bleeding was achieved where necessary using Thrombin- soaked Gelfoam gently applied with paddies and removed by irrigation until all bleeding was completely controlled. Complete decompression of all traversing and lateral exiting neural elements was confirmed by gentle palpation and attention was then turned to the discectomy. A rectangular annulectomy was performed at the L4-L5 level on the left using a #11 scalpel blade and the subannular disk herniation fragment was resected using pituitary rongeur with noticeable decompression of the ventral canal. All loose and potentially compressive disk fragments within the disk space and in the subannular foraminal zone were also removed using straight and angled pituitary rongeurs. There was no evidence of gross destabilization of the operated motion segment after decompression however clinical and instability criteria for instrumented fusion were met due to the patients significant preoperative degenerative discogenic symptoms and radiologic findings now further destabilized by the wide facetectomy and foraminotomy required for adequate exposure and decompression of the neural elements. The disk space was irrigated using a 10 cc syringe and catheter to remove any additional loose fragments. The disk space was then prepared for cage implantation using rotating decorticating patricia and the resulting additional dislodged disk material was removed with pituitary rongeurs. Optimal endplate contact and distraction to a near anatomic disk space height was achieved using these patricia up to an 11 mm height which was also documented as having optimal position on fluoroscopic images and excellent interference fit on intraoperative mechanical testing. The endplates were further prepared using straight and angled serrated and ring curettes to remove both the superior and inferior cartilaginous endplate as well as to score and partially decorticate the osseous endplates particularly in the region of the intended final position of the central chamber of the cage while preserving as much peripheral cortical support as possible to minimize the risk of cage subsidence. The anterior and peripheral annulus was palpated within the disk space and found to be intact without defects that would likely be associated with extravasation of graft material beyond the confines of the disk space. The disk space was again irrigated prior to graft and cage implantation. An 11 mm x 26 mm x 9 mm trial was impacted into the disk space and found to result in excellent alevism of disk space height and lordosis on fluoroscopic images and good interference fit on mechanical testing. The trial was removed and a 6 cc vial of Mosaictronic Elbert DBF was reconstituted with blood aspirated from the surgical site per protocol. Half of this volume (3 cc) was implanted into the anterior and medial disk space adjacent to the intended trajectory of the cage. Based on trial sizing an 11 mm x 26 mm x 9 mm x 4 degree lordotic Titan Spine TO (Titan Oblique) cage was selected for implantation. The cage chamber was filled with morselized autograft which had been previously harvested and cleaned of residual soft tissue. The cage was then impacted into the disk space obliquely angled toward midline along the previously prepared and optimized slightly posterolateral to anteromedial trajectory. The cage was then rotated into final position per its design with excellent stability and interference fit documented by visual, palpation and mechanical testing. Optimal position of the implant with the anterior portion of the cage at midline as well as alevism of both segmental and global vertebral lordotic alignment was documented on fluoroscopic images. The impaction handle for the implant was removed and the cage was found to be adequately recessed within the disk space so that there was no contact with the overlying neural elements when the nerve root retractor was removed and the neural elements were allowed to return to their normal resting position. The epidural space was thoroughly irrigated and the neural elements were covered with gel foam while attention was turned to the L5-S1 level. Hemilaminotomy, decompression and discectomy were performed at the L5-S1 level on the right using identical techniques to those described above. As at the L4- L5 level on the left, moderate but not excessive epidural fibrosis required neurolysis to safely mobilize the neural elements and complete the decompressive discectomy and interbody instrumented arthrodesis and this was greater than typically required for a non-revision procedure consistent with preoperative MRI findings but was generally consistent with other decompressive procedures performed and was therefore not designated as a separate surgical service. The disk herniation fragment at this level was again subligamentous, contained and moderate in size causing elevation, deviation, elongation, unidirectional compression and erythematous irritation of the traversing neural elements even after significant dorsolateral decompression confirming the indication for separate and distinct decompressive discectomy. Neuromuscular hyperactivity was again noted during gentle dissection and mobilization of the neural elements which resolved rapidly after decompression and was not associated with electrophysiological monitoring changes. After decompressive discectomy there was no further neural compression within the canal by palpation. As at the L4- L5 level, both clinical and microinstability criteria indicated the need for multicolumn instrumented fusion especially after wide decompression ad discectomy of already degenerative disk space. Final disk space preparation and instrumented fusion was then performed using identical technique, implant type, implant size and graft material as noted above for the L4-L5 level. Optimal implant interference fit, fixation, position and spinal alignment were again documented by visual, palpation and fluoroscopic assessment. Attention was then turned to the posterobilateral instrumented arthrodesis. The stealth frameless stereotactic reference arm was rigidly attached to the S1 spinous process. The surgical site was filled with sterile irrigant, the operative field was covered with sterile drapes, and the O-Arm was brought into the room and centered at the operative field using standard technique. O-Arm localizing images were performed and checked to ensure inclusion of all operative levels and reference points. O-Arm scan was then performed using standard technique and precautions. Good quality images were obtained. The scan data was transferred to the [employer] computer. The three primary frameless stereotactic navigation instruments were referenced to the fixed frame with accuracy checked against surface landmarks before proceeding. Based on measurements made on the preoperative and intraoperative radiologic studies, 6.5 mm diameter pedicle screws were felt to be optimal for fixation at S1, L5 and L4 while minimizing the risk of pedicle mechanical compromise or breach. Each of the six pedicle screw holes (bilateral at S1, L5 and L4) was placed using identical standard technique. The stereotactic awl was used to breach the optimal screw entry point at the confluence of the inferolateral facet margin and the superolateral pars (or sacral ala at S1) mapping optimal trajectory through the pedicle and into the superior 1/3 of the vertebral body on the stealth images tracking from posterolateral to anteromedial along this path. After the posterior pedicle was entered with the awl this same path was followed with the stereotactic pedicle (Lenke) dissector to an optimal depth just before reaching the anterior vertebral body wall. The 5.5 mm stereotactic tap then followed this same trajectory to the same depth mapped on CT reconstructed navigation images. Each pedicle screw hole was then checked with a ball-tipped probe in all four primary quadrants and at the base with no pedicle wall or distal cortical breach identified. Stereotactic and subtraction technique length measurements confirmed the optimal length of all screws. Solara double thread pitch 40 mm length screws were placed bilaterally at S1, and 50mm length screws were placed bilaterally at L5 and L4. All implanted screws were 6.5 mm in diameter. All implanted screws were documented to have excellent insertional torque and fixation during placement. After all screws were in place, each was tested electrophysiologically and demonstrated acceptable threshold of conductance to the adjacent neural structures suggesting that there was no cortical pedicle breach or direct contact between any of the screws and the epidural space or neural elements. The conductance for the left L4 screw was slightly lower than for the others ( although still within acceptable range and without any other associated electrophysiological monitoring changes) and so this screw was specifically evaluated on O-Arm scan. The surgical site was thoroughly irrigated with approximately 500 cc of antibiotic irrigation, the retractors were removed and the fully exposed coronel of the surgical site were then further irrigated before final scanning. The surgical field was then covered with sterile drapes, the surgical site was filled with sterile antibiotic saline irrigation and the O-Arm was brought back into the room for final scan using the same technique as described above with good quality images and reconstructions obtained. This confirmed the findings of the initial scan (excellent decompression, interbody cage position and alevism of disk space height and lordotic alignment) without osseous changes and showed optimal interval placement of the pedicle screws at each site. All neural elements appeared fully decompressed on this scan which was confirmed by palpation prior to proceeding. The left L4 screw was observed to be closely approximating the medial pedicle wall and so, after replacement of the deep Gelpi retractors, this screw was redirected slightly laterally under stereotactic guidance from the new O-Arm scan and reconstructed navigating images. After screw removal and prior to redirection, the pedicle hole was palpated with a ball-tipped probe and no pedicle wall defect sufficient to allow passage of this instrument could be detected. Upon repositioning of the screw, excellent insertional torque and fixation was again documented and it was not felt that any additional scan was necessary for confirmation. Screw stimulation showed no change in conductance which was again in an acceptable range. The navigation reference arm was removed and the site thoroughly irrigated. The posterolateral fusion was then performed using standard technique. With the retractors replaced, any residual soft tissue was resected from the posterolateral elements down to the level of the intertransverse ligament which was preserved. The debrided posterolateral elements and spaces were finally thoroughly irrigated using approximately 1 liter of Bacitracin irrigation via bulb lavage technique prior to decortication, grafting and final instrumentation. The osseous posterior structures were decorticated down to bleeding cancellous bone using the Midas Sukh drill and 5 mm cutting sara including the sacral ala, transverse processes, lateral facets and pars interarticularis of each vertebral level and intervertebral motion segment. The remaining facet capsule of each fused motion segment was removed and the facet joints denuded by drilling into the joint space with a Midas Sukh drill to promote facet joint fusion. The intertransverse space was then packed on both sides with a mixture of the remaining cleaned and morselized autograft, 1 container of Elbert DBF (6 cc), Progenix DBM (10 cc) and Mastergraft strip ( 1strip = 12 cc) in order from deep-medial (closely approximating the decorticated structures) to superficial-lateral. All graft material was divided equally between the two sides and distributed equally on each side across the two intended arthrodesis levels from L4 to S1. Care was taken to compress graft against the posterolateral decorticated structures for optimal ingrowth while avoiding any extension of graft deep (below the intertransverse membrane) or medial (close to the decompressed canal) to the intended fusion bed so as to prevent any contact or impingement on the neural elements or other unintended structures. Appropriate sized rods were selected (precontoured [place] Chrome 4.75 mm diameter by 50mm length john on the right and 60mm length john on the left) without the need for additional contouring to optimally fit the screw head configuration with the primary curve in the sagittal plane so as to match and stabilize the fairly normal lordotic curve achieved by prone positioning on the Curtis frame and with intervertebral anterior column instrumentation. Care was taken to select john lengths which would avoid any significant extension above the upper or below the lower screw heads. Once the rods were in place in the screw heads on each side with the desired alignment, the top-tightening set screws were placed over the rods in the screw heads and provisionally tightened. Neutral screw-john interface final fixation without the need for compression or distraction between screws was felt to provide optimal fixation, stability and final multiaxial alignment alevism and so no additional manipulation was performed. Although lordosis was partially restored using specialized positioning and instrumentation techniques, no major, separate or distinct corrective realignment procedure was deemed necessary for this case. Prior to final tightening all neural elements including each exposed and decompressed foraminal nerve root exit zone was confirmed to have unimpeded passage by palpation with a nerve hook and [place] instrument. The alignment and decompression was felt to be optimal with no additional in-situ correction required and so the set screws were tightened maximally and sheared off at preset torque per their design with the screw-john interfaces fixed in their resting position (neutral mode) with no compression or distraction applied. This [id number] construct combined with the anterior implants formed a rigid construct which resisted both translational and angular forces in the sagittal, coronal and axial planes by gentle intraoperative manual testing. After final fixation each exposed foraminal opening was again checked with a [place] instrument passed above each decompressed nerve root and found to be widely patent with clear passage of the nerve root at each level on both sides. The retractors were removed and superficial soft tissues checked with no evidence of pressure changes or need for debridement. Continuous electrophysiological monitoring throughout the procedure showed no adverse changes at any point during the decompression, instrumentation, or at any other time during the case. Closure/Extubation - The layered surgical site closure, which was performed using standard techniques, is described in detail in this operative report. The surgical site was thoroughly irrigated and hemostasis was carefully achieved. FloSeal was used to provide additional epidural and other surgical site hemostasis where necessary. The exposed neural elements were covered with a layer of Gelfoam to minimize postoperative epidural adhesions. Vancomycin powder (approximately 250 mg) was divided equally between the two sides within the posterolateral intertransverse space overlying the fusion graft material taking care to avoid placement or migration into the region of the decompressed canal. Dual large bore subfascial LATONIA drains were placed with one on each side in the lateral intertransverse spaces and carried out through the inferior wall of each side of the surgical site using a trocar. All initial counts were correct prior to commencing with closure. The deep muscular tissues were reapproximated to minimize open subfascial space using #0 Vicryl suture with a simple, interrupted technique. The lumbosacral fascial closure was achieved with #0 Vicryl suture in an interrupted figure-of-8 fashion. The remaining Vancomycin powder ( approximately 250 mg) was spread evenly over the repaired fascial closure. The superficial muscular and deep subcutaneous layers were closed with #2-0 Vicryl simple, interrupted sutures. The superficial subcutaneous layer was closed with #3-0 undyed Vicryl simple, inverted, interrupted sutures. The skin was closed using oral with the edges everted. A standard, sterile Xeroform, 4 x 4 gauze and ABD pad dressing was placed over the primary incision as well as over both drain cutaneous exit sites and all dressings were held in place with paper tape. The drains were connected to medium-size compressed vacuum suction bulbs with evidence of active drainage without sign of obstruction. All final counts were correct prior to removing the drapes. The patient was transferred to the hospital bed in the supine position and extubated in the operating room without difficulty. Recovery Room Assessment: The patient was taken to the recovery room in stable condition where gross distal neurological examination showed no deficits or change from normal preoperative examination on initial recovery from anesthesia. He will follow the usual postoperative protocols for multilevel lumbar decompression, discectomy and multicolumn instrumented fusion. This program will include standard postoperative floor monitoring and care, low risk anti-thrombosis protocols, pain control and early inpatient physical therapy treatment for mobilization before proceeding with nursing-assisted and then independent mobilization. The initial plan will be for home discharge and outpatient rehabilitation program, however, given the extensive multilevel nature of his surgery, he would also be an excellent candidate for a comprehensive inpatient rehabilitation program if the indications and need are determined based on early postoperative inpatient hospital evaluations. Given the multilevel nature of his treatment, use of allograft and patient history of tobacco use a postoperative spinal fusion osteogenesis stimulator would be indicated and will be ordered, applied and followed through the office. Findings: 1) The patients preoperative back pain was consistent with intraoperative findings of degenerative disc and facet changes as well as mechanical findings of microinstability and intracanal inflammatory reaction to the disk herniations resulting in erythematous changes of the meninges. Both motion segments were further destabilized under both axial and rotational mechanical loads by the disk material and osseous resection required for optimal decompression thus fulfilling both standard clinical and instability criteria necessitating a stabilization procedure. Optimal segmental interference fit of the interbody and posterolateral [id number] implant fixation achieved this stabilization in all planes with optimal placement confirmed on final fluoroscopy and O-Arm images. Lordotic alignment was also partially restored without requirement for separate corrective procedure and this was confirmed by intraoperative visual, palpation and radiologic assessment. 2) The patients preoperative radicular pain was consistent with initial intraoperative findings which confirmed compression of the right L5 exiting and S1 traversing nerve roots at L5-S1 on the right in the lateral recess as suggested on preoperative radiologic studies. This appeared to be exacerbated by an inflammatory component causing nerve root erythema and neuromuscular hyperactivity which resolved rapidly after decompressive discectomy. Although the patient did not have specific radicular complaints on the left he did have similar meningeal inflammatory and neuromuscular hyperactive findings on the left at the L4-L5 level which were likely contributing to his axial symptoms and appeared to resolve rapidly after decompressive discectomy. All compressive soft tissues, disc fragments and tethering epidural fibrotic tissues were completely resected with full canal, lateral recess and foraminal decompression of all paracentral and lateral exiting and traversing neural elements as documented by intraoperative palpation at the conclusion of the procedure. 3) Moderate epidural fibrosis mostly within the ventral canal at both disk herniation sites (left L4-L5 and right L5-S1) with moderate adherence of the traversing thecal sac and nerve roots to the disk herniation causing moderate tethering and exacerbating the disk herniation unidirectional compression of the neural elements. This required intermediate-level epidural neurolysis which was felt to be consistent with other decompressive procedures and therefore did not require a separate and distinct surgical procedural service. 4) No consistent or significant electrophysiological changes were noted on continuous EMG, continuous SSEP and intermittent MEP monitoring throughout the procedure. There were no changes noted between the final end-operative assessment and the initial normal baseline assessment. Discharge Disposition: PACU Additional Comments: The patient will be admitted to the surgical floor from the PACU after he meets all recovery criteria and is cleared by anesthesia. He will continue management on the orthopedic spine surgery service (Dr. Wilson) postoperatively with close consultation follow-up by the neurosurgery service (Dr. Adkins). His medical conditions were cleared as optimized prior to admission by his primary care physician (Bradford Dick M.D.) with no related clinical changes or concerns evident perioperatively. All recommendations from his preoperative clearance evaluations will be followed. No postoperative medical consultation will be required unless his medical condition changes. As per discussion with the patient preoperatively, his resuscitation status will remain Full Code. Standard postoperative nursing and other inpatient service care protocols for this procedure (multilevel hemilaminotomy decompression, discectomy and multicolumn instrumented fusion) will be followed unless separately specified below. Assuming standard postoperative course, these protocols will include: Vital sign assessment and documentation with bilateral upper and lower extremity neurovascular checks q2 hours x 4, then q4 hours (with only lower extremity neurovascular checks required if upper extremity checks are initially normal) x 4 and then qshift and prn until discharge unless more frequent monitoring is clinically indicated. Administer IV fluids (D5-1/2 NS) at rate of 100 cc per hour overnight. Heplock IV site on POD #1 when taking PO well. Patient should turn side to side every 2 hours while awake and with all vital sign monitoring. Encourage distal lower extremity vascular flow promoting motion exercises. Encourage incentive spirometry use every 1 hour while awake. Check dressing every shift and reinforce prn. Call covering house-staff for excessive drainage saturating dressing. I&Os with drain output measurement and EHR documentation every shift and as needed. Gently milk drain tubing with each measurement and prn to prevent clotting. Hemoglobin and Hematocrit every morning at earliest non-STAT blood draw. Standard perioperative antibiotic prophylaxis (Ancef 2 grams based on patient body mass IV every 8 hours) will continue until one dose after the last surgical site drain or Alejandre catheter has been removed. The patients postoperative pain will be managed initially using TERRA COTTA ROOFER Dilaudid with nursing administered IV Dilaudid available for breakthrough pain coverage, or in preparation for activities (physical therapy, etc.). His pain coverage will be closely monitored along with his dose-related level of sedation. His usage and any additional IV medication coverage during the first postoperative day will be used to adjust his TERRA COTTA ROOFER dosing or (most likely) wean him to oral medication baseline with nursing administered IV medication for breakthrough as soon as possible. Once he has weaned to an oral narcotic medication baseline, his narcotic requirements will be monitored and used to calculate an appropriate regimen of oral narcotic medications in preparation for discharge home. Diazepam will be added prn for postoperative muscular spasm. This will be administered IV while he is on the TERRA COTTA ROOFER and then PO thereafter. He will be started on an early postoperative bowel program (including early mobilization, laxatives as needed and high fiber diet) so as to optimize bowel recovery from anesthesia, counteract the effects of postoperative narcotic use and to minimize the likelihood of constipation or ileus. Because of the extensive nature of his procedure as well as his potential requirement for at least intermediate dose narcotic pain medication, the patient will start with clear liquid diet overnight following surgery and then advance to soft mechanical diet on the morning of POD #1. He can then advance as tolerated to regular diet without any required restrictions over 1-2 postoperative days. He is encouraged to advance his diet more slowly over the first 2 postoperative days if he experiences any significant abdominal discomfort or distention, if he is unable to mobilize out of bed per protocol, or if he does not begin to have audible bowel sounds on examination over that time period. Balanced diet is recommended to support optimal surgical site and osseous healing. Monitor and record each LATONIA drain output every shift. Protect drains from traction as they do not have suture anchor. Incorporate drains into primary surgical site dressing or dress separately with each dressing change. Drains will be assessed for removal by attending surgeons based on output and other perioperative data. Discontinue Alejandre catheter on the morning of postoperative day #1 or earlier at the patients request whenever he is able to mobilize well enough to tolerate use of bedpan, commode or bathroom. Straight catheterize as needed thereafter for bladder distention or retention. Contact admitting surgeon if patient is unable to mobilize and tolerate at least bedpan use by the morning of POD #3. Postoperative physical therapy should begin on the morning of POD #1 per protocol for mobilization to chair and for ambulation with walker to bathroom. He may then progress as tolerated with initial physical therapy and then subsequent nursing care supervision. He is encouraged to minimize lumbar motion as much as possible and should use his brace when out of bed but it is not required for brief mobilization to bathroom. He is unrestricted with regard to weight-bearing on all extremities. The patient is encouraged to minimize lumbar motion (bending and twisting), lifting, carrying, pushing, and pulling particularly during the first 6 weeks. The patient was prescribed and dispensed a multidirectional buttress, circumferential compression modular lumbar brace with chairback extension prior to surgery. He was instructed to bring this with him to the hospital or have his family or others bring it on the morning of POD #1 for use during early postoperative mobilization. This brace will be used most of the time when he is out of bed but it may be removed to take breaks and for hygiene. This level of brace use will continue until his first postoperative visit at which time future need for bracing will be assessed. He is encouraged to use the brace most of the time when out of bed however it is not necessary for him to use the brace constantly and he may mobilize for short periods of time without it particularly if he finds it uncomfortable. He does not need to use it in bed although he may use it at rest for comfort if he so chooses. Given that the patient meets criteria for use of and would likely benefit significantly from a electromagnetic field stimulating osteosynthesis device, this treatment will be initiated once he begins the outpatient rehabilitation phase unless otherwise determined by the primary surgeon. Stimulation is not required during the inpatient hospital and early rehabilitation phases of treatment. The patient is at low perioperative intravascular thromboembolic risk and does not require any pharmacological prophylactic treatment in this regard as long as he mobilizes early and frequently with lower extremity motion exercises and walking. Sequential compression devices will be used for additional mechanical prophylaxis throughout his hospitalization unless there are associated adverse affects. He will be encouraged to mobilize at least to a chair by the first postoperative day. He will be instructed regarding lower extremity vascular flow promoting exercises and will be encouraged to perform them frequently. His risk may be slightly elevated compared to his cohort due to the prolonged prone positioning required for as well as the extensive nature and duration of his surgical procedure. Therefore, if he has difficulty mobilizing within the first 24 hours then additional pharmacological prophylactic treatment may need to be considered. If early and consistent mobilization cannot be achieved for any reason or if additional medical factors increase thromboembolic risk then subcutaneous Heparin therapy would be reasonable but only if the potential benefit is assessed by the primary spine surgical and consulting medical teams to outweigh the associated potential surgical risks in this case given the patients acute postoperative status. If more aggressive prophylaxis is to be considered during the first postoperative week please consult the admitting surgeon (Dr. Wilson) prior to initiating this treatment so that any necessary concomitant adjustments can be made to the patients surgical site monitoring, nursing and physical therapy orders given the patients early postoperative status. Dressing changes should be performed starting on POD #2 and then daily ( following shower) thereafter until POD #5 or until the dressing and incision are clean and dry for 48 hours, whichever is latest. Given that they are not suture anchored, care should be taken to preserve the suction drains until they are ordered to be discontinued by the surgical team. Assuming standard postoperative course, arrangements should begin for home discharge starting on POD #1. Discharge planning arrangements for any required home nursing care will need to be finalized prior to discharge home. The preoperative plan for an extensive surgical procedure of this nature is for home discharge on approximately POD #4 if patient meets appropriate criteria. Changes in this estimated discharge timeline will depend on timing of drain removal, postoperative evaluations and patient progression toward independent function and meeting discharge criteria. If he has difficulty with pain control , mobilization, self-care or meeting other home discharge milestones then he would be an excellent candidate for an inpatient rehabilitation program. Contact admitting surgeon (Dr. Wilson) if the patient is not able to appropriately progress toward home discharge by POD #3 or if there are any questions regarding discharge planning. Once arrangements are finalized for home discharge the patient will be given prescriptions for narcotic pain medication (Oxycodone/Acetaminophen, Dilaudid or similar) and muscle relaxant medication (Diazepam or similar) with specific medications and doses to be determined based on the patients medication requirements and responses during his hospitalization. Assuming standard postoperative course, the patient will be seen for initial outpatient [facility] office follow-up per preoperatively scheduled arrangement at 14- 17 days after surgery. Standard postoperative clinical assessment, incision check, staple removal and Steri-Strip application will be performed at that time. Anterior-Posterior and lateral lumbar office radiographs will be arranged at 6-12 weeks postoperatively unless indicated earlier by symptoms or clinical evaluation. The patient was instructed not to drive until he is assessed at his 6 week postoperative office evaluation. At that time consideration may be made regarding short distance driving thereafter only if he has good pain control without the need for narcotic or other sedating medication, is no longer requiring a brace and only if he meets all DMV criteria for operating his specific motor vehicle. The patient will continue to be designated as temporarily totally disabled from work for at least 6 weeks postoperatively. He will then be assessed at routine follow-up evaluation for light duty work return although this will be based on various factors determined at that time and may be delayed until he has had at least several weeks of physical therapy. The patient understands and accepts that full and unrestricted work return is never guaranteed. He is aware that it full work return, if possible, would not be anticipated until 4-6 months after surgery and will depend on several interim assessments. If earlier work return is to be considered then separate office functional capacity evaluation can be arranged to determine whether this will be reasonable and safe. CC: STEVE MATUTE,GEORGIE Eisenberg
[2016-09-12 11:43] VITALS: BP 108/60
--- NOTE | 2016-09-12 13:47 | PN- Neurosurgical ---
Surgical Brief Attending Note Brief Attending Note: pod#1 lbp BUT RESOLVED LEG PAIN UP AND AMBULATING DOING WELL
[2016-09-12 15:51] VITALS: BP 104/58
[2016-09-12 20:02] VITALS: BP 108/58
[2016-09-12 22:47] VITALS: BP 110/60
[2016-09-13 02:57] VITALS: BP 98/68
--- NOTE | 2016-09-13 07:37 | PN- Orthopedic ---
Subjective Subjective: No acute events overnight. Pain not well controlled, however has not been taking valium. Toelrating diet, voiding spontaneously. PT ambulated with patient yesterday, anticipates discharge home today. Numbness/tingling improving and almost resolved. Objective Vital Signs and I&Os Vital Signs Date Time Temp Pulse Resp B/P Pulse O2 O2 Flow FiO2 Ox Delivery Rate 09/13 0257 98.6 76 18 98/68 96 Room Air 09/12 2247 98.8 67 18 110/60 97 Room Air 09/12 2001 98.4 71 21 108/58 97 Room Air 09/12 1551 98.8 72 19 104/58 97 Room Air 09/12 1143 97.5 68 18 108/60 96 Room Air Intake & Output 09/13 0800 09/13 0000 09/12 1600 09/12 0809/12 0000 09/11 1600 Intake Total 161 417 9453 1450 640 Output Total 80 151 129 2857 1050 Balance 220 -50 645 365 -410 Intake, IV 225 850 400 Intake, Oral 300 480 800 600 240 Output, 80 80 135 50 Drainage Output, Urine 530 914 080 8539 Patient 160 lb Weight Physical Exam: General: CAOx3, NAD Lungs: Normal work of breathing Back/Extremities: Postoperative dressing with mild serosanguinous posteriorly. LATONIA drains with serosagnuinous drainage. 5/5 plantar/dorsiflexion bilaterally. 2+ DP pulses bilaterally. No calf tenderness or edema. Current Medications: Current Medications Sig/Vane Start time Last Medication Dose Route Stop Time Status Admin Cefazolin Sodium 2 GM IQ8 09/12 0000 DC 09/13 N/A 1 UNIT IV 09/13 0000 0030 Diazepam 5 MG Q6-PRN PRN 09/11 1815 AC PO Docusate Sodium 100 MG TID 09/11 2199 AC 09/12 PO 2224 Famotidine 20 MG BID 09/11 2200 AC 09/12 PO 2224 Hydromorphone HCl 1 MG Q2-3 HRS NEEDED.. 09/12 0730 AC 09/13 IV 0221 Ketorolac 30 MG Q6 09/11 1800 AC 09/13 Tromethamine IV 0612 Nicotine 14 MG DAILY 09/12 1710 AC TOP Ondansetron HCl 4 MG Q6P PRN 09/11 1815 AC IV Oxycodone/ 1 TAB Q4P PRN 09/12 0730 AC Acetaminophen PO Oxycodone/ 2 TAB Q4P PRN 09/12 0730 AC 09/12 Acetaminophen PO 2223 Patient Medication 1 ED .STK-MED ONE 09/12 1341 DC Teaching ED 09/12 1342 Patient Own 0 DAILY 09/12 1000 DC Medication PO Zolpidem Tartrate 5 MG AT BEDTIME PRN 09/12 2045 AC 09/12 PO 2224 Assessment/Plan Assessment/Plan This is a 30 year old male s/p posterior lumbar stabilization L4-S1 on 09/11/2016 , postoperative day 2. - pain control: continue percocet, has not taken any valium yet - Continue LATONIA drains to self suction - regular diet - DVT prophylaxis: early ambulation and SCDs - Continue PT, awaiting clearance for home - Dispo: home today with [facility] for drain care and once pain controlled. Will need dressing change prior to discharge Core Measures/Miscellaneous Venous Thromboembolism VTE Risk Factors: Age > 40, Surgery VTE Contraindications: No Contraindications VTE Prophylaxis Ordered Inpt: Mechanical (ALPS/TEDS) VTE Diagnosis: No VTE Type: NONE VTE Confirmed by (Test): NONE Beta Jerry Is Beta Jerry a Home Med? No Antibiotics Is Patient on Antibiotics? Yes If Yes: prophylaxis
[2016-09-13] MEDS ORDERED: PERCOCET 5-3251 EACH PO (07:42)
--- NOTE | 2016-09-13 07:45 | Patient Discharge Instructions ---
Discharge Instructions General Discharge Information You were seen/treated for: back pain You had these procedures: posterior lumbar stabilization L4-S1 Watch for these problems: fever >101.5, severe pain not controlled with medication Special Instructions: No bending, twisting, or lifting >5 lbs Change dressing daily, apply gauze and tape Diet Continue normal diet: Yes Activity Full Activity/No Limits: No Activity Self Limited: Yes Pounds, do NOT lift more than: 5 Acute Coronary Syndrome Inclusion Criteria At DC or during hospital stay patient has or had the following: ACS DIAGNOSIS No Discharge Core Measures Meds if any: Prescribed or Continued at Discharge Meds if any: NOT Prescribed or Continued at Discharge Congestive Heart Failure Inclusion Criteria At DC or during hospital stay patient has or had the following: CHF DIAGNOSIS No Discharge Core Measures Meds if any: Prescribed or Continued at Discharge Meds if any: NOT Prescribed or Continued at Discharge Cerebrovascular accident Inclusion Criteria At DC or during hospital stay patient has or had the following: CVA/TIA Diagnosis No Discharge Core Measures Meds if any: Prescribed or Continued at Discharge Meds if any: NOT Prescribed or Continued at Discharge Venous thromboembolism Inclusion Criteria VTE Diagnosis No VTE Type NONE VTE Confirmed by (Test) NONE Discharge Core Measures - Per Current guidelines, there needs to be overlap - treatment for the first 5 days of Warfarin therapy. - If discharged on Warfarin prior to 5 days of - overlap therapy, the patient will need to be - assessed for post discharge needs including - *Post discharge parental anticoagulation - *Warfarin and/or parental anticoagulation education - *Follow up date to check INR post discharge At least 5 days overlap therapy as Inpatient No Meds if any: Prescribed or Continued at Discharge Note: Overlap Therapy is Warfarin and Anticoagulant Meds if any: NOT Prescribed or Continued at Discharge
[2016-09-13 08:31] VITALS: BP 104/70
[2016-09-13] MEDS ORDERED: CANE1 EACH ANY (09:11)
[2016-09-13] MEDS ORDERED: VALIUM5 M2 PO (10:29)
--- NOTE | 2016-09-13 11:16 | NUR ---
HOME MED RETURNED TO PATIENT
--- NOTE | 2016-10-12 12:10 | Discharge Summary ---
Visit Information Visit Dates Admission Date: 09/11/16 Discharge Date: 09/13/16 Hospital Course Course Attending Physician: STEVE MATUTE,GEORGIE Eisenberg Primary Care Physician: JULIO MATUTE,[facility], [place] Course: Patient was admitted to [facility] on 09/11/2016 for elective posterior lumbar stabilization L4-S1. He tolerated procedure well. Was transferred to general surgical floor. Pain was controlled with po pain meds. He was voiding appropriately and was ambulatory. His vital signs were stable and within normal limits. He was tolerating po. He was deemed appropriate for discharge. Allergies: Coded Allergies: NO KNOWN ALLERGIES (09/05/16) Disposition Summary Disposition Principal Diagnosis: L4-s1 hnp Additional Diagnosis: none Discharge Disposition: home or self care Discharge Instructions General Discharge Information Code Status: Full Code Patient's Diet: Regular, advance as tolerated Patient's Activity: WBAT Follow-Up Instructions/Appts: Contact Dr. Hatch's office to arrange/confirm follow up appointment Medications at Discharge Discharge Medications: Continue taking these medications: Azilsartan Med/Chlorthalidone (Edarbyclor 40-12.5 MG Tablet) 40 MG-12.5 MG TABLET 1 Tablet ORAL DAILY Comments: Last Taken: 09/13/16 Time: 830AM Tramadol HCl (Tramadol HCl) 50 MG TABLET 1 Tablet ORAL as needed for PAIN Comments: NOT GIVEN IN HOSPITAL Cyclobenzaprine HCl (Cyclobenzaprine HCl) 10 MG TABLET 1 Tablet ORAL as needed for SPASMS Comments: NOT GIVEN IN HOSPITAL DO NOT COMBINE WITH VALIUM Ibuprofen/Famotidine (Duexis 800-26.6 MG Tablet) 800 MG-26.6 MG TABLET 1 Tablet ORAL As Directed Comments: NOT GIVEN IN HOSPITAL Start taking the following new medications: Oxycodone HCl/Acetaminophen (Percocet 5-325 MG Tablet) 5 MG-325 MG TABLET 1-2 Tablet ORAL EVERY 4 HOURS NEEDED as needed for PAIN Qty = 30 No Refills Comments: Last Taken: 09/13/16 Time: 930AM CANE (CANE) 1 EACH EACH 1 Unit ANY NEEDED as needed for stability Qty = 1 No Refills Comments: GIVEN TO PATIENT Diazepam (Valium) 5 MG TABLET 1-2 Tablet ORAL EVERY 8 HOURS NEEDED as needed for SPASM Qty = 1 No Refills Instructions: NOT TO BE TAKEN CONCURRENTLY WITH FLEXORIL, ORIGINAL RX HAND WRITEN BY Serena HATCH MD Comments: Last Taken: 09/13/16 Time: 740AM DO NOT COMBINE WITH FLEXERIL Copies To: STEVE MATUTE,GEORGIE Eisenberg
== END 2016-09-13 11:00 | DRG 460 ==
LOC: SDA 04:15 → 2NB 04:15 → SDA 07:00 → 2NB 17:49
PROVIDERS: ADMIT Orthopaedic Surgery Orthopaedic Surgery of the Spine
PROC: 0SG30AJ Fusion of Lumbosacral Joint with Interbody Fusion Device, Posterior Approach, Anterior Column, Open Approach (ICD-10-PCS; principal; 2016-09-11)
PROC: 0SG00ZJ (ICD-10-PCS; principal; 2016-09-11)
DX: M51.17 Intervertebral disc disorders with radiculopathy, lumbosacral region (principal); I10 Essential (primary) hypertension; F17.210 Nicotine dependence, cigarettes, uncomplicated; M47.896 Other spondylosis, lumbar region; M47.9 Spondylosis, unspecified
CPT/HCPCS: 2NBSP; 36415; 72100; 87086; 88304; 97116-GO; 97161-GP; 97530-GO; C1713; J0131; J0690; J1170; J1885; J2405; J3370; J7042

== ENCOUNTER 2016-10-19 14:31 | Emergency (ER) | payer OTHER ==
[~2016-10-19] VITALS: Ht 172.7 cm; Wt 74.8 kg
[~2016-10-19 14:31] MED LIST changes: +CANE1 EACH ANY; +PERCOCET 5-3251 EACH PO; +VALIUM5 M2 PO
--- NOTE | 2016-10-19 16:05 | ED NECK/BACK PAIN COMPLAINT ---
History of Present Illness General Chief Complaint: General Adult Stated Complaint: MULTIPLE COMPLAINTS Source: patient, DR HATCH Exam Limitations: no limitations Vital Signs & Intake/Output Vital Signs & Intake/Output Vital Signs Date Time Temp Pulse Resp B/P Pulse O2 O2 Flow FiO2 Ox Delivery Rate 10/19 1948 98.8 73 20 131/75 95 Room Air 10/19 1439 98.2 111 20 145/72 97 Room Air Allergies Coded Allergies: NO KNOWN ALLERGIES (09/05/16) Triage Note: TRIPLE LUMBAR FUSION 4 WEEKS AGO HERE, FELL DOWN 8 STAIRS LAST NIGHT AND FELL AGAIN THIS MORNING. STATES HE HAS HAD A FEVER AND DIARRHEA THE PAST FEW DAYS, HAD INCISIONAL INFECTION, THE SHINGLES AND THE PAIN GOING DOWN HIS RIGHT LEG IS WORSE THEN BEFORE THE SURGERY. Triage Nurses Notes Reviewed? yes Onset: Gradual Duration: day(s): (FEW) HPI: This 30-year-old male status post lumbar fusion on September 21 by Jonathan Hatch MD presents to the ER with chief complaint of fall yesterday and today with worsening pain in the right leg associated with some weakness. Patient was sent in for an MRI of the lumbar spine. According to the patient he developed a rash and shingles after removal of oral. Prior to that he was feeling well for 2 weeks. At that time he was put on both antibiotics and antivirals. He followed up with outpatient tool room attendant the digits scraping which confirm shingles. He states the last few days the pain has been getting worse. He is taking Percocet 7.54 times a day as well as gabapentin. Complaints of low-grade temperature 90.9. He states the wound dehisced a bit initially but then has been healing well since then. He followed up outpatient had some blood work done the other day. We puts [place] 7.4 and sedimentation rate was 35. CRP was negative. He denies any difficulty with bowel or bladder but states that he is having a difficult time walking secondary to his leg giving way. He feels weak in the foot and leg. (LOREN MATUTE,LILI) Reconcile Medications Ascorbic Acid (Vitamin C) 500 MG TABLET 1 TAB PO DAILY SUPPLEMENT (Reported) Azilsartan Med/Chlorthalidone (Edarbyclor 40-12.5 MG Tablet) 40 MG-12.5 MG TABLET 1 TAB PO DAILY BP (Reported) Celecoxib 200 MG CAPSULE 1 CAP PO BID PAIN/INFLAMMATION (Reported) Cholecalciferol (Vitamin D3) (Vitamin D) (Unknown Strength) CAPSULE (Unknown Dose) PO DAILY SUPPLEMENT (Reported) Cyanocobalamin (Vitamin B-12) (Unknown Strength) TABLET (Unknown Dose) PO DAILY SUPPLEMENT (Reported) Cyclobenzaprine HCl 10 MG TABLET 1 TAB PO PRN SPASMS (Reported) Cyclobenzaprine HCl 10 MG TABLET 1 TAB PO BID PRN MUSCLE SPASM Diazepam 5 MG TABLET 2 TAB PO BID MUSCLE RELAXER (Reported) Gabapentin 300 MG CAPSULE 1 CAP PO QAM NERVE PAIN (Reported) Gabapentin 300 MG CAPSULE 2 CAP PO BID NERVE PAIN Oxycodone HCl/Acetaminophen (Percocet 10-325 MG Tablet) 10 MG-325 MG TABLET 1 TAB PO 4 TIMES/DAY PRN pain twenty... [id number] Tramadol HCl 50 MG TABLET 1 TAB PO PRN PAIN (Reported) Vitamin E Mixed (Vitamin E) (Unknown Strength) TABLET (Unknown Dose) PO DAILY SUPPLEMENT (Reported) (BASILIA MATUTE,AGUSTIN Ocasio) Past History Travel History Traveled to [place] past 21 day No Medical History Any Pertinent Medical History? 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 No (LILI PIMENTEL MD) Review of Systems Review of Systems Constitutional: Denies: chills, fever. Eyes: Reports: no symptoms. Ears, Nose, Throat, Mouth: Reports: no symptoms. Respiratory: Reports: no symptoms. Cardiovascular: Reports: no symptoms. Gastrointestinal/Abdominal: Reports: no symptoms. Musculoskeletal: Reports: back pain, muscle pain, muscle stiffness. Skin: Reports: no symptoms. Neurological/Psychological: Reports: numbness, weakness. All Other Systems: Reviewed and Negative (LILI PIMENTEL MD) Physical Exam Physical Exam General Appearance: well developed/nourished, alert, awake, mild distress Head: atraumatic Eyes: Bilateral: PERRL, EOMI. Ears, Nose, Throat, Mouth: hearing grossly normal Neck: normal inspection, supple, full range of motion Respiratory: normal breath sounds Cardiovascular: regular rate/rhythm Peripheral Pulses: 2+ radial (R), 2+ radial (L), 2+ dorsalis pedis (R), 2+ dorsalis pedis (L) Gastrointestinal: soft, non-tender Back: INCISION C/D/I, HEALING SCABS TENDER LATERAL RIGHT SIDE OF INCISION, NO ABSCESS Extremities: normal range of motion Straight Leg Raising: Right: Pain at ____ degrees (10). Neurologic/Psych: awake, alert, oriented x 3, normal mood/affect Skin: intact, normal color, warm/dry (LOREN MATUTE,[facility]) Progress Differential Diagnosis: cauda equina syn, herniated disc, POST OP INFXN, SHINGLES, NEUROPATHY Plan of Care: Orders Procedure Date/time Status Regular Diet 10/20 B Active BLOOD CULTURE 10/19 1800 Active COMPREHENSIVE METABOLIC PANEL 10/19 1605 Complete CBC WITHOUT DIFFERENTIAL 10/19 1605 Complete Current Medications Sig/Vane Start time Last Medication Dose Stop Time Status Admin Morphine Sulfate 4 MG ONCE ONE 10/19 1800 CAN (Morphine) 10/19 1801 Laboratory Tests 10/19/16 1732: Anion Gap 13, Estimated GFR > 60, BUN/Creatinine Ratio 23.3, Glucose 84, Calcium 9.9, Total Bilirubin 0.4, AST 61 H, ALT 56, Alkaline Phosphatase 103, Total Protein 7.5, Albumin 4.3, Globulin 3.2, Albumin/Globulin Ratio 1.3, CBC w Diff NO MAN DIFF REQ, RBC 4.17 L, MCV 95.0 H, MCH 32.4 H, RDW 14.6 H, MPV 6.7 L, Gran % 46.0, Lymphocytes % 41.0, Monocytes % 7.3, Eosinophils % 5.2 H, Basophils % 0.5, Absolute Granulocytes 3.1, Absolute Lymphocytes 2.7, Absolute Monocytes 0.5, Absolute Eosinophils 0.3, Absolute Basophils 0, PUBS MCHC 34.1 Microbiology 10/19 1940 BLOOD: Blood Culture - RECD 10/19 1903 BLOOD: Blood Culture - RECD Long conversation with Jonathan Hatch MD and MRI results were reviewed. Patient is currently complaining of significant amount of right leg pain and weakness. He expressed the fall today. Plan is to hold him and to see how he does after Toradol, morphine, Decadron and Valium. If the patient improves enough to go home we will discharge him with Valium and increase his Percocet to Q4 hours administration. The patient is still weak and at risk for falls Jonathan Hatch MD recommends admission either to the surgical service for medical service. He will at that time require neurology consultation secondary to worsening history of pain and weakness despite normal imaging. (LOREN MATUTE,LILI) Diagnostic Imaging: Viewed by Me: MRI. Discussed w/RAD: MRI. Radiology Impression: PATIENT: MONY LIN PRESENT AGE: 30 PATIENT ACCOUNT NO: [id number] : 83 LOCATION: [facility] ORDERING PHYSICIAN: LILI PIMENTEL MD SERVICE DATE: 10/19/16 EXAM TYPE: MRI - MRI -LUMBAR SPINE W & W/O SHABBIR EXAMINATION: MR LUMBAR SPINE WITHOUT AND WITH CONTRAST CLINICAL INFORMATION: Low back pain radiating down right leg. Prior fusion surgery. COMPARISON: MRI lumbar spine from 08/30/2016. TECHNIQUE: MRI of the lumbar spine was obtained before and after intravenous administration of 15 mL OptiMARK. FINDINGS: VERTEBRAL BODIES AND PARASPINAL STRUCTURES: The marrow signal is homogeneous. The patient is status post posterior lumbar interbody fusion at L4-L5 and L5-S1 with hardware in place. There are laminectomy defects at the L4 and L5 levels. There are no compression fractures or subluxations. There is a trace amount of fluid in the right L5 laminectomy bed without mass effect. CONUS MEDULLARIS AND CAUDA EQUINA: Normal, terminating at the level of L1. No lower cord signal abnormality is identified. The cauda equina nerve roots appear normal. There is no pathologic leptomeningeal enhancement. There are mild -to-moderate degenerative changes of the left SI joint. SPINAL LEVELS: L1-L2: Well-hydrated normal disc. L2-L3: No disc pathology visible. L3-L4: No disc abnormality. L4-L5: Postsurgical changes with a residual small central disc protrusion mildly impressing upon the ventral thecal sac. No central canal stenosis. No significant foraminal narrowing. L5-S1: Residual very small central disc protrusion. No central canal stenosis or foraminal narrowing. IMPRESSION: Postsurgical changes, status post posterior lumbar interbody fusion at L4-L5 and L5-S1. Trace amount of fluid in the L5-S1 laminectomy bed without mass effect. Residual small central disc protrusions without visible nerve root compression at L4-L5 and L5-S1. No central canal stenosis or foraminal narrowing. No new disc pathology. No abnormal enhancement. DICTATED BY: MAEVE LEONE MD DATE/ TIME DICTATED:10/19/161726 CASHIER SUPERVISOR:JACIEL DATE/TIME TRANSCRIBED: 10/19/161726 CONFIDENTIAL, DO NOT COPY WITHOUT APPROPRIATE AUTHORIZATION. < Electronically signed in Other Vendor System> SIGNED BY: MAEVE LEONE MD 10/19/16 492 Hand-Off Endorsed To: AGUSTIN CUI MD Endorsed Time: 1899 Pending: other (REEVALUATION, POSS ADMISSION) (LILI PIMENTEL MD) Departure Departure Disposition: STILL A PATIENT Condition: Stable Departure Forms: Customer Survey General Discharge Information (LILI PIMENTEL MD) Departure Clinical Impression Primary Impression: Post-operative pain Secondary Impressions: Back pain, Post herpetic neuralgia Referrals: ISAI KIM MD (PCP/Family) Prescriptions: Current Visit Scripts Gabapentin 2 CAP PO BID #60 CAP Ref 1 Cyclobenzaprine HCl 1 TAB PO BID PRN MUSCLE SPASM #30 TAB Ref 1 Oxycodone HCl/Acetaminophen (Percocet 10-325 MG Tablet) 1 TAB PO 4 TIMES/DAY PRN pain #20 TAB twenty... [id number] Comments 10/19/18, 21:06... Discussed at length with dr. hatch and patient.... pt is feeling better after supportive medications. Labs benign, ct scan/mri benign. will increase pain medications to percocet 10mg qid, will increase neurontin to 2 bid, flexeril in am, along with valium in the evening.... pt wishes to go home. if not feeling better he will return. he will follow up with dr. hatch on saturday and was referred to neurologist. (BASILIA MATUTE,AGUSTIN Ocasio)
--- NOTE | 2016-10-19 17:49 | MRI REPORT ---
EXAMINATION: MR LUMBAR SPINE WITHOUT AND WITH CONTRAST CLINICAL INFORMATION: Low back pain radiating down right leg. Prior fusion surgery. COMPARISON: MRI lumbar spine from 08/30/2016. TECHNIQUE: MRI of the lumbar spine was obtained before and after intravenous administration of 15 mL OptiMARK. FINDINGS: VERTEBRAL BODIES AND PARASPINAL STRUCTURES: The marrow signal is homogeneous. The patient is status post posterior lumbar interbody fusion at L4-L5 and L5-S1 with hardware in place. There are laminectomy defects at the L4 and L5 levels. There are no compression fractures or subluxations. There is a trace amount of fluid in the right L5 laminectomy bed without mass effect. CONUS MEDULLARIS AND CAUDA EQUINA: Normal, terminating at the level of L1. No lower cord signal abnormality is identified. The cauda equina nerve roots appear normal. There is no pathologic leptomeningeal enhancement. There are [id number] degenerative changes of the left SI joint. SPINAL LEVELS: L1-L2: Well-hydrated normal disc. L2-L3: No disc pathology visible. L3-L4: No disc abnormality. L4-L5: Postsurgical changes with a residual small central disc protrusion mildly impressing upon the ventral thecal sac. No central canal stenosis. No significant foraminal narrowing. L5-S1: Residual very small central disc protrusion. No central canal stenosis or foraminal narrowing. IMPRESSION: Postsurgical changes, status post posterior lumbar interbody fusion at L4-L5 and L5-S1. Trace amount of fluid in the L5-S1 laminectomy bed without mass effect. Residual small central disc protrusions without visible nerve root compression at L4-L5 and L5-S1. No central canal stenosis or foraminal narrowing. No new disc pathology. No abnormal enhancement.
[2016-10-19 17:51] LABS: ABSOLUTE BASOPHIL COUNT 0 /CUMM (0.0-0.2); ABSOLUTE EOSINOPHIL COUNT 0.3 /CUMM (0.0-0.7); ABSOLUTE GRANULOCYTE CT 3.1 /CUMM (1.4-6.5); ABSOLUTE LYMPH COUNT 2.7 /CUMM (1.2-3.4); ABSOLUTE MONOCYTE COUNT 0.5 /CUMM (0.10-0.60); BASOPHIL % 0.5 % (0.0-2.0); EOSINOPHIL % 5.2 % (0-5); HEMATOCRIT 39.7 % (42-52); MEAN CORPUSCULAR HGB 32.4 PG (27.0-31.0); MEAN CORPUSCULAR HGB CONC 34.1 G/DL (33.0-37.0); MEAN PLATELET VOLUME 6.7 FL (7.4-10.4); PLATELET COUNT 368 /CUMM (130-400); RBC DISTRIBUTION WIDTH 14.6 % (11.5-14.5); RED BLOOD CELL CT 4.17 /CUMM (4.70-6.10); WHITE BLOOD CELL COUNT 6.7 /CUMM (4.8-10.8)
[2016-10-19] MEDS ORDERED: PERCOCET 7.5-31 EACH PO (18:18)
[2016-10-19] MEDS ORDERED: DIAZEPAM5 M1 PO (18:19)
[2016-10-19] MEDS ORDERED: GABAPENTIN300 M2 PO ×3 (18:19→20:55)
[2016-10-19] MEDS ORDERED: CELECOXIB200 M1 PO (18:20)
[2016-10-19] MEDS ORDERED: VITAMIN C500 M8 PO (18:21)
[2016-10-19] MEDS ORDERED: VITAMIN E100 UNI2 PO (18:22)
[2016-10-19] MEDS ORDERED: VITAMIN D2000 UNIT PO (18:22)
[2016-10-19] MEDS ORDERED: VITAMIN B-121000 MC3 PO (18:22)
[2016-10-19 19:49] VITALS: BP 131/75
[2016-10-19] MEDS ORDERED: PERCOCET 10-321 EACH PO (20:55)
[2016-10-19] MEDS ORDERED: CYCLOBENZAPRINE10 M1 PO (20:55)
== END 2016-10-19 21:08 ==
LOC: ERH 14:31
PROVIDERS: Emergency Medicine
DX: B02.29 Other postherpetic nervous system involvement (principal); M54.9 Dorsalgia, unspecified; G89.18 Other acute postprocedural pain
CPT/HCPCS: 72149; 72158; 87040; 96374; 96375; A9579; J1885; J3360

== ENCOUNTER 2017-09-16 11:05 | Inpatient (IN) | payer OTHER ==
[~2017-09-16] VITALS: Ht 172.7 cm; Wt 77.1 kg
[~2017-09-16 11:05] MED LIST changes: +CELECOXIB200 M1 PO; +CEPHALEXIN500 M3 PO; +DIAZEPAM5 M1 PO; +DOCUSATE SODIU100 M3 PO; +FLEXERIL PO; +GABAPENTIN300 M2 PO; +METAXALONE800 M1 PO; +NEURONTIN300 M1 PO; +OXACILLIN SODIUM2 G1 IV; +OXYCODONE HCL10 M2 PO; +OXYCODONE HCL15 M1 PO; +OXYCONTIN10 M1 PO; +PERCOCET 10-321 EACH PO; +PERCOCET 7.5-31 EACH PO; +VITAMIN B-121000 MC3 PO; +VITAMIN C500 M8 PO; +VITAMIN D2000 UNIT PO; +VITAMIN E100 UNI2 PO
[2017-09-16 12:07] LABS: ABSOLUTE BASOPHIL COUNT 0 /CUMM (0.0-0.2); ABSOLUTE EOSINOPHIL COUNT 0.3 /CUMM (0.0-0.7); ABSOLUTE LYMPH COUNT 2.1 /CUMM (1.2-3.4); ABSOLUTE MONOCYTE COUNT 0.4 /CUMM (0.10-0.60); BASOPHIL % 0.8 % (0.0-2.0); EOSINOPHIL % 4.5 % (0-5); GRANULOCYTE % 51.8 % (42.2-75.2); MEAN CORPUSCULAR HGB CONC 34.1 G/DL (33.0-37.0); MEAN CORPUSCULAR VOLUME 93.9 FL (80.0-94.0); MEAN PLATELET VOLUME 6.8 FL (7.4-10.4); PLATELET COUNT 413 /CUMM (130-400); RBC DISTRIBUTION WIDTH 13.5 % (11.5-14.5); RED BLOOD CELL CT 4.05 /CUMM (4.70-6.10); WHITE BLOOD CELL COUNT 5.8 /CUMM (4.8-10.8)
[2017-09-16 12:15] LABS: PT 11.9 SEC (9.4-12.5)
--- NOTE | 2017-09-16 12:44 | ED GENERAL ADULT ---
History of Present Illness General Chief Complaint: General Adult Stated Complaint: "SIB DR. MANZO FOR LABS AND X RAY AND SURGERY" Source: patient, old records Exam Limitations: no limitations Vital Signs & Intake/Output Vital Signs & Intake/Output Vital Signs Date Time Temp Pulse Resp B/P B/P Pulse O2 O2 Flow FiO2 Mean Ox Delivery Rate 09/16 1600 98.9 68 20 110/68 98 Room Air 09/16 1453 98.0 70 16 102/66 96 Room Air 09/16 1259 98 Room Air Room Air 09/16 1127 97.0 77 20 109/70 98 Room Air Allergies Coded Allergies: No Known Allergies (06/17/17) Reconcile Medications Ascorbic Acid (Vitamin C) 1,000 MG TABLET 1 TAB PO DAILY VITAMIN SUPPORT ( Reported) Azilsartan Med/Chlorthalidone (Edarbyclor 40-12.5 MG Tablet) 40 MG-12.5 MG TABLET 1 TAB PO DAILY BP (Reported) NOT GIVEN IN HOSPITAL, LOSARTAN AND CHLORTHIADONE GIVEN SEPARATELY Cefazolin Sodium/D5w (Cefazolin 2 G/50 Ml-D5w Bag) 2 GRAM/50 ML PIGGYBACK 2 GM IV Q8 ANTIBIOTIC, INFECTION (Reported) Clobetasol Propionate 0.05 % OINT...G. 1 RAJEEV TOP QPM SKIN (Reported) Cyanocobalamin (Vitamin B-12) 1,000 MCG TABLET 1 TAB PO DAILY VITAMIN SUPPORT (Reported) Diazepam (Valium) 5 MG TABLET 1-2 TAB PO Q8H PRN SPASM Fluocinonide 0.05 % SOLUTION 1 RAJEEV TOP BID SKIN (Reported) apply to affected area(s) Gabapentin (Neurontin) 300 MG CAPSULE 1 CAP PO TID PAIN (Reported) Oxycodone HCl 15 MG TABLET 1 TAB PO BID PAIN (Reported) Oxycodone HCl/Acetaminophen (Percocet 7.5-325 MG Tablet) 7.5 MG-325 MG TABLET 1 TAB PO 4 TIMES/DAY PRN PAIN (Reported) Triamcinolone Acetonide 0.1 % CREAM..G. 1 RAJEEV TOP DAILY SKIN (Reported) Triage Note: PT SENT TO ED BY DR MANZO FOR PRE-OP. PT HAS HAD MULTIPLE BACK SURGERIES, MOST RECENT 08/10/17. PT STATES DR MANZO NEEDS TO OPERATE AGAIN FOR ? ABSCESS. PT HAS CALVIN PICC FOR IV ABX TID. DR MANZO WOULD LIKE; CBC,CMP,PT,TYPE & SCREEN AND CALL SURGICAL PA WHEN PT IS CLEARED. Triage Nurses Notes Reviewed? yes Onset: Abrupt Duration: day(s): (1), constant Timing: recent history Injury Environment: home Severity: moderate Severity Numbers: 5 No Modifying Factors: none Associated Symptoms: denies HPI: 31 Year old male sent in by his orthpedist dr yun for admission for surgery this afternoon. Mony had undergone an L5-S1 decompressive laminectomy and fusion in September 2016 complicated by fracture of the left S1 screw and this took place in on 07/04/2017 and further complication requiring PICC to RUE and cefazolin. Patient spoke with dr yun this morning who advised he come to the ER for preop blood work. He has been having worsening pain to his back with ambulation. Mony had an outpatient MRI that showed a possible fluid collection and spoke with dr yun who advised he come in. he took his last dose of cefazolin this am as well as his oxycodone and percocet. No fever, chills. He reports to mild back pain. no urinary or bowel incontinence. no nausea vomiting or abdominal pain. (Oc Aldana) Past History Travel History Traveled to [place] past 21 day No Medical History Any Pertinent Medical History? see below for history Neurological: see H&P EENT: NONE Cardiovascular: hypertension Respiratory: NONE Gastrointestinal: NONE Hepatic: NONE Renal: NONE Musculoskeletal: chronic back pain, HLA B27 positive Psychiatric: NONE Endocrine: NONE Blood Disorders: NONE Cancer(s): NONE ORTHOPEDIC RN/Reproductive: NONE Other Medical Hx: Atypical Lumbar Shingles (10/2016) History of MRSA: No History of VRE: No History of CDIFF: No Surgical History Surgical History: L4-S1 decompression and instrumented lumbar fusion (see HPI for details) hardware removal, removal of fractured left S1 screw fragment, revision decompression and uninstrumented fusion (see HPI for details) Psychosocial History Who do you live with Spouse Services at Home None What is your primary language Tajik Tobacco Use: Quit <30 days ago ETOH Use: denies use Illicit Drug Use: denies illicit drug use Family History Hx Contributory? No (Oc Aldana) Review of Systems Review of Systems Constitutional: Reports: see HPI. Comments Review of systems: See HPI, All other systems negative. Constitutional, no chills no fever, HEENT: no sore throat no congestion Cardiovascular: No chest pain Skin: no rashes, no change in skin Respiratory: No dyspnea no cough GI: No nausea no vomiting : No dysuria Muscle skeletal: No joint pain, chronic back pain, no neck pain, Neurologic: , no headache Heme/endocrine: No bruising Immunology: No lymphadenopathy (Oc Aldana) Physical Exam Physical Exam General Appearance: well developed/nourished, alert, awake Comments: Well-developed well-nourished person in no acute distress HEENT: Normal EENT exam; PERRL, EOMI, HEAD is atraumatic. moist mucous membranes. Neck: Supple, normal range of motion Back: Full range of motion Cardiovascular: Regular rate and rhythms no murmur Respiratory: No respiratory distress. Patient speaking in full complete sentences. Breath sounds clear to auscultation bilaterally: NO W/R/R Abdomen: Soft, nontender nondistended, no appreciable organomegaly. Normal bowel sounds. No rebound/guarding Extremity: pic line to RUE, No edema, full range of motion of extremities, 5 out of 5 strength noted to bilateral upper and lower extremities Neuro: Alert oriented x3, motor sensory normal, There were no obvious focal neurologic abnormalities. Skin: No appreciable rash on exposed skin, skin is warm and dry. Psych: Mood and affect is normal, memory and judgment is normal. Core Measures ACS in differential dx? No CVA/TIA Diagnosis: No Sepsis Present: No Sepsis Focused Exam Completed? No (Oc Aldana) Progress Differential Diagnoses I considered the following diagnoses in my evaluation of the patient: [Surgical site infection Plan of Care: Orders Procedure Date/time Status Nothing by Mouth 09/16 D Active PROTHROMBIN TIME 09/16 1122 Complete TYPE & SCREEN (NOT X-MATCH) 09/16 1122 Complete COMPREHENSIVE METABOLIC PANEL 09/16 1114 Complete CBC WITHOUT DIFFERENTIAL 09/16 1114 Complete Current Medications Sig/Vane Start time Last Medication Dose Stop Time Status Admin Sodium Chloride 1,000 ML ONCE ONE 09/16 1245 AC 09/16 (Normal Saline 0.9%) 09/16 1923 1256 Laboratory Tests 09/16/17 1153: Anion Gap 15, Estimated GFR > 60, BUN/Creatinine Ratio 35.7 H, Glucose 100 H, Calcium 10.4 H, Total Bilirubin 0.3, AST 33, ALT 29, Alkaline Phosphatase 57, Total Protein 8.5 H, Albumin 4.9, Globulin 3.6, Albumin/Globulin Ratio 1.4, PT 11.9, INR 1.13, CBC w Diff NO MAN DIFF REQ, RBC 4.05 L, MCV 93.9, MCH 32.0 H, RDW 13.5, MPV 6.8 L, Gran % 51.8, Lymphocytes % 35.9, Monocytes % 7.0, Eosinophils % 4.5, Basophils % 0.8, Absolute Granulocytes 3.0, Absolute Lymphocytes 2.1, Absolute Monocytes 0.4, Absolute Eosinophils 0.3, Absolute Basophils 0, PUBS MCHC 34.1 c/w pt and family plan of care 1245 case d/w surgical pa yadi who is aware of the pt, advsised to hold abx, morphine 4mg iv, iv fluids ordered. pt to OR this afternoon Initial ED EKG: none (Oc Aldana) Departure Departure Time of Disposition: 1246 Disposition: STILL A PATIENT Condition: Stable Clinical Impression Primary Impression: Surgical site infection Referrals: Bradford Dick MD (PCP/Family) Departure Forms: Customer Survey General Discharge Information OR/GI Note Spoke With: Mamie MATUTE,Jonathan Eisenberg ED Treatment Decision: MONY LIN requires urgent operative management or an emergent procedure that cannot be performed in the Emergency Room setting. Transport To: [facility] (Oc Aldana) PA/REHABILITATION CONSTRUCTION SPECIALIST Co-Sign Statement Statement: ED Attending supervision documentation- [X] I saw and evaluated the patient. I have also reviewed all the pertinent lab results and diagnostic results. I agree with the findings and the plan of care as documented in the PA's/REHABILITATION CONSTRUCTION SPECIALIST's documentation. [] I have reviewed the ED Record and agree with the PA's/REHABILITATION CONSTRUCTION SPECIALIST's documentation. [] Additions or exceptions (if any) to the PAs/REHABILITATION CONSTRUCTION SPECIALIST's note and plan are summarized below: [] (Hemal Amaro DO) Critical Care Note Critical Care Note Critical Care Time: non-applicable (Oc Aldana)
[2017-09-16] MEDS ORDERED: CEFAZOLIN2 GM/50 M1 IV (13:02)
[2017-09-16] MEDS ORDERED: PERCOCET 7.5-31 EACH PO (13:02)
[2017-09-16] MEDS ORDERED: OXYCODONE HCL15 M1 PO (13:03)
[2017-09-16] MEDS ORDERED: CLOBETASOL PROP15 G1 TOP (13:04)
[2017-09-16] MEDS ORDERED: FLUOCINONIDE60 ML TOP (13:04)
[2017-09-16] MEDS ORDERED: TRIAMCINOLONE A15 G1 TOP (13:04)
[2017-09-16] MEDS ORDERED: VITAMIN B-121000 MC3 PO (13:05)
[2017-09-16] MEDS ORDERED: VITAMIN C1000 M4 PO (13:05)
--- NOTE | 2017-09-16 15:18 | History & Physical Pre-Op ---
General Information and HPI History of Present Illness: 31yo M presents to ED on Dr. Hatch's request. Per pt, he was seen 4 days ago in his office due to "increased back pain" for last 3 weeks He underwent an outpt MRI, which showed possible fluid collection. Spoke with Dr. Hatch on the phone today, and since his pain has not improved over the weekend he was urged to come to hospital for labs and surgery. Pt is well known to Dr. Hatch due to his extensive lumbar surgical history. Per operative notes: 09/11/16: L4-S1 lami/discectomy/fusion for chronic back/rle pain 07/04/17: partial removal hardware 10/04 fractured hardware/instability 07/26/17: I&D infected postop paraspinal hermatoma, wound dehiscence 08/10/17: additional I&D DC'ed from hospital mid-august with PICC line for 6 weeks of oxacillin, though per pt, spoke with Dr. Moeller over the phone and abx changed to cefazolin 2g Q8 per pt due to "side effects". During this interview, pt denies pain at rest. He denies fever/chills/nausea/ vomiting/cp/sob. For further details, please refer to Dr. Hatch's notes/addendum. Allergies/Medications Allergies: Coded Allergies: No Known Allergies (06/17/17) Home Med list Ascorbic Acid (Vitamin C) 1,000 MG TABLET 1 TAB PO DAILY VITAMIN SUPPORT ( Reported) Azilsartan Med/Chlorthalidone (Edarbyclor 40-12.5 MG Tablet) 40 MG-12.5 MG TABLET 1 TAB PO DAILY BP (Reported) NOT GIVEN IN HOSPITAL, [facility] AND CHLORTHIADONE GIVEN SEPARATELY Cefazolin Sodium/D5w (Cefazolin 2 G/50 Ml-D5w Bag) 2 GRAM/50 ML PIGGYBACK 2 GM IV Q8 ANTIBIOTIC, INFECTION (Reported) Clobetasol Propionate 0.05 % OINT...G. 1 RAJEEV TOP QPM SKIN (Reported) Cyanocobalamin (Vitamin B-12) 1,000 MCG TABLET 1 TAB PO DAILY VITAMIN SUPPORT (Reported) Diazepam (Valium) 5 MG TABLET 1-2 TAB PO Q8H PRN SPASM Fluocinonide 0.05 % SOLUTION 1 RAJEEV TOP BID SKIN (Reported) apply to affected area(s) Gabapentin (Neurontin) 300 MG CAPSULE 1 CAP PO TID PAIN (Reported) Oxycodone HCl 15 MG TABLET 1 TAB PO BID PAIN (Reported) Oxycodone HCl/Acetaminophen (Percocet 7.5-325 MG Tablet) 7.5 MG-325 MG TABLET 1 TAB PO 4 TIMES/DAY PRN PAIN (Reported) Triamcinolone Acetonide 0.1 % CREAM..G. 1 RAJEEV TOP DAILY SKIN (Reported) Past History Medical History Cardiovascular: hypertension Musculoskeletal: chronic back pain, multiple lumabr surgeries-see HPI, past surgical notes Other Medical Hx: Atypical Lumbar Shingles (10/2016) History of MRSA: No History of VRE: No History of CDIFF: No Surgical History Pertinent Surgical History: multiple lumbar procedures (see HPI and Mamie's opnotes for details) Past Family/Social History Psychosocial History Who Do You Live With? spouse Services at Home None Primary Language: Greenlandic Smoking Status: Current Everyday Smoker ETOH Use: occasional use Illicit Drug Use: denies illicit drug use Living Will? 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 Name of POA/HCP: unknown Functional Ability Ambulation: independent Exam & Diagnostic Data Last 24 Hrs of Vital Signs/I&O Vital Signs Date Time Temp Pulse Resp B/P B/P Pulse O2 O2 Flow FiO2 Mean Ox Delivery Rate 09/16 1453 98.0 70 16 102/66 96 Room Air 09/16 1259 98 Room Air Room Air 09/16 1127 97.0 77 20 109/70 98 Room Air Intake & Output 09/16 1600 09/16 0800 09/16 0000 Intake Total 1000 Output Total Balance 1000 Intake, IV 1000 Patient 170 lb Weight Weight Reported by Patient Measurement Method Physical Exam: GEN- NAD CARD- s1s2 RRR PULM- CTAB ABD- soft nt BACK/EXT- RUE picc line in place, in use. bl calves soft nt without edema. Palp DP pulse bl. gross sensory/motor intact bl feet/toes. able to straight leg lift bilaterally, though rle limited due to pain. wellhealed surgical incision low back, no erythema, no fluctuance, no drainage. some tenderness top of r buttock. Last 24 Hrs of Labs/César: Laboratory Tests 09/16/17 1153: Anion Gap 15, Estimated GFR > 60, BUN/Creatinine Ratio 35.7 H, Glucose 100 H, Calcium 10.4 H, Total Bilirubin 0.3, AST 33, ALT 29, Alkaline Phosphatase 57, Total Protein 8.5 H, Albumin 4.9, Globulin 3.6, Albumin/Globulin Ratio 1.4, PT 11.9, INR 1.13, CBC w Diff NO MAN DIFF REQ, RBC 4.05 L, MCV 93.9, MCH 32.0 H, RDW 13.5, MPV 6.8 L, Gran % 51.8, Lymphocytes % 35.9, Monocytes % 7.0, Eosinophils % 4.5, Basophils % 0.8, Absolute Granulocytes 3.0, Absolute Lymphocytes 2.1, Absolute Monocytes 0.4, Absolute Eosinophils 0.3, Absolute Basophils 0, PUBS MCHC 34.1 Diagnostic Data Other Results MRI lumbar spine- see rads report. "fluid collection" per Dr. Hatch Assessment/Plan Assessment/Plan: A- 31yoM with extensive lumbar surgical history with Dr. Hatch over the past year, now with worsening back and right lower extremity pain over the last 3-4 weeks, presents to ED per Dr. Hatch to go to operating room today for surgical site exploration/I&D for presumed infection. P- NPO IVF prn pain meds OR today Dr. Hatch to further detail plan of care. As Ranked By This Provider Problem List: 1. S/P lumbar fusion 2. Post-operative pain
--- NOTE | 2017-09-16 18:27 | Admission Core Measures ---
Acute Coronary Syndrome (CM) ACS Core Measures Acute Coronary Syndrome Diagnosis No Congestive Heart Failure (NEW) CHF Core Measures Congestive Heart Failure Diagnosis No Cerebrovascular Accident (NEW) CVA Core Measures CVA/TIA Diagnosis No Venous Thromboembolism VTE Core Nando (View Protocol) VTE Risk Factors Surgery No Mechanical VTE Prophylaxis d/t N/A MechProphylax Ordered No VTE Pharm Prophylaxis d/t Surgical Contraindication (per dr. yun) Problem List As ranked by this Provider includes Assessment & Plan 1. Post-operative pain 2. Surgical site infection HOME MEDS Home Med List Ascorbic Acid (Vitamin C) 1,000 MG TABLET 1 TAB PO DAILY VITAMIN SUPPORT ( Reported) Azilsartan Med/Chlorthalidone (Edarbyclor 40-12.5 MG Tablet) 40 MG-12.5 MG TABLET 1 TAB PO DAILY BP (Reported) Cefazolin Sodium/D5w (Cefazolin 2 G/50 Ml-D5w Bag) 2 GRAM/50 ML PIGGYBACK 2 GM IV Q8 ANTIBIOTIC, INFECTION (Reported) Clobetasol Propionate 0.05 % OINT...G. 1 RAJEEV TOP QPM SKIN (Reported) Cyanocobalamin (Vitamin B-12) 1,000 MCG TABLET 1 TAB PO DAILY VITAMIN SUPPORT (Reported) Diazepam (Valium) 5 MG TABLET 1-2 TAB PO Q8H PRN SPASM Fluocinonide 0.05 % SOLUTION 1 RAJEEV TOP BID SKIN (Reported) Gabapentin (Neurontin) 300 MG CAPSULE 1 CAP PO TID PAIN (Reported) Oxycodone HCl 15 MG TABLET 1 TAB PO BID PAIN (Reported) Oxycodone HCl/Acetaminophen (Percocet 7.5-325 MG Tablet) 7.5 MG-325 MG TABLET 1 TAB PO 4 TIMES/DAY PRN PAIN (Reported) Triamcinolone Acetonide 0.1 % CREAM..G. 1 RAJEEV TOP DAILY SKIN (Reported)
--- NOTE | 2017-09-16 20:24 | PN- Orthopedic ---
Subjective Subjective: POSTOP CHECK c/o incisional pain, due for meds now. no n/v/cp/sob. denies parathesias Objective Vital Signs and I&Os Vital Signs Date Time Temp Pulse Resp B/P B/P Pulse O2 O2 Flow FiO2 Mean Ox Delivery Rate 09/16 1600 98.9 68 20 110/68 98 Room Air 09/16 1453 98.0 70 16 102/66 96 Room Air 09/16 1259 98 Room Air Room Air 09/16 1127 97.0 77 20 109/70 98 Room Air Intake & Output 09/16 1600 09/16 0800 09/16 0000 09/15 1600 09/15 0800 09/15 0000 Intake Total 1000 Output Total Balance 1000 Intake, IV 1000 Patient 170 lb Weight Weight Reported by Patient Measurement Method Physical Exam: gen-nad card-s1s2 rrr pulm-ctab abd-soft nt back/ext- ayah w min serosang in bulb, dressing cdi, perincisional tenderness. bl calves soft nt, palp dp pulses, gross sensate/motor intact bl feet Assessment/Plan Assessment/Plan POD0 SP exploration/I&D lumbar surgical site, expected postop pain, stable P- home pain meds, plus additional for postop control regular diet as tolerated cont ivf until johnie po alps, oob ayah to self suction am labs titrate o2 ancef continuous via rue picc. Will contact Dr. Moeller in am i&os dc planning Core Measures Venous Thromboembolism VTE Risk Factors Surgery No Mechanical VTE Prophylaxis d/t N/A MechProphylax Ordered No VTE Pharm Prophylaxis d/t Surgical Contraindication (per dr. yun)
[2017-09-16 20:45] VITALS: BP 115/58
[2017-09-17 07:12] VITALS: BP 90/60
[2017-09-17 07:53] LABS: ABSOLUTE BASOPHIL COUNT 0 /CUMM (0.0-0.2); ABSOLUTE EOSINOPHIL COUNT 0.3 /CUMM (0.0-0.7); MEAN CORPUSCULAR HGB CONC 33.8 G/DL (33.0-37.0); RED BLOOD CELL CT 3.06 /CUMM (4.70-6.10); WHITE BLOOD CELL COUNT 6.5 /CUMM (4.8-10.8)
[2017-09-17 08:02] LABS: ABSOLUTE GRANULOCYTE CT 3.8 /CUMM (1.4-6.5); ABSOLUTE LYMPH COUNT 1.9 /CUMM (1.2-3.4); ABSOLUTE MONOCYTE COUNT 0.5 /CUMM (0.10-0.60); BASOPHIL % 0.3 % (0.0-2.0); EOSINOPHIL % 4.7 % (0-5); GRANULOCYTE % 58.8 % (42.2-75.2); MEAN CORPUSCULAR HGB 32.2 PG (27.0-31.0); MEAN CORPUSCULAR VOLUME 95.3 FL (80.0-94.0); MEAN PLATELET VOLUME 7.2 FL (7.4-10.4); PLATELET COUNT 272 /CUMM (130-400); RBC DISTRIBUTION WIDTH 13.5 % (11.5-14.5)
[2017-09-17 08:05] LABS: HEMATOCRIT 29.1 % (42-52)
--- NOTE | 2017-09-17 09:02 | PN- Neurosurgical ---
See Addendum Subjective Subjective: Patient reports right-sided pressure of his back has imporved since yesterday. He complains of pain related to his AYAH drain. He was up ambulating in the halls earlier this morning. He reports side effects of oxacillin was related to flu- like symptoms which resolved after he was switched to ancef 10 days later. Denies ever being tested for flu. Reports scalp peeling which resolved with a Fluocinonide cream from his psychologist clinical and throat itchiness and rash when he initally started ancef. Denies f/c/n/v. Objective Vital Signs and I&Os Vital Signs Date Time Temp Pulse Resp B/P B/P Pulse O2 O2 Flow FiO2 Mean Ox Delivery Rate 09/17 0831 128/80 09/17 0712 97.4 71 20 90/60 97 Room Air 09/17 0000 99 Nasal 1.5L Cannula 09/16 2044 99 Nasal 1.5L Cannula 09/16 2044 97.6 65 18 115/58 99 Nasal 1.5L Cannula 09/16 1600 98.9 68 20 110/68 98 Room Air 09/16 1453 98.0 70 16 102/66 96 Room Air 09/16 1259 98 Room Air Room Air 09/16 1127 97.0 77 20 109/70 98 Room Air Intake & Output 09/17 1600 09/17 0800 09/17 0000 09/16 1600 09/16 0800 09/16 0000 Intake Total 0397 514 1722 Output Total 500 Balance 9119 216 5409 Intake, IV 810 1000 Intake, Oral 720 240 Number 0 Bowel Movements Output, 50 Drainage Output, Urine 450 Patient 170 lb 170 lb Weight Weight Reported by Patient Reported by Patient Measurement Method Physical Exam: Gen: resting comfortably in chair NAD HEENT: pale moist oral mucosa, no evidence of swelling, erythema white plaques Card: s1s2 rrr Lungs: diminished breath sounds, overwise clear Back/ext: dressing c/d/i, ayah w min serosang in bulb, perincisional tenderness noted, alps in place, no edema or calf tenderness B/L Current Medications: Current Medications Sig/Vane Start time Last Medication Dose Route Stop Time Status Admin Acetaminophen 650 MG Q4P PRN 09/16 1845 AC PO Cefazolin Sodium 2 GM IQ8 09/17 0000 AC 09/17 N/A 1 UNIT IV 0835 Chlorthalidone 12.5 MG DAILY 09/17 1000 AC 09/17 PO 0831 Dextrose/Sodium 1,000 ML .[id number] 09/16 1844 AC 09/16 Chloride IV 2115 Diazepam 5 MG Q8P PRN 09/16 1829 AC 09/16 PO 2122 Docusate Sodium 100 MG BID 09/16 2199 AC 09/17 PO 0831 Gabapentin 300 MG TID 09/16 2199 AC 09/17 PO 0830 Hydromorphone HCl 2 MG .STK-MED ONE 09/16 1923 DC IM 09/16 192 Losartan Potassium 50 MG DAILY 09/17 1000 AC 09/17 PO 0831 Morphine Sulfate 2 MG Q3P PRN 09/16 184 09/17 IV 0549 Morphine Sulfate 0 .STK-MED ONE 09/16 1601 DC .ROUTE Morphine Sulfate 4 MG ONCE ONE 09/16 1600 DC 09/16 IV 09/16 1601 1604 Morphine Sulfate 0 .STK-MED ONE 09/16 1420 DC .ROUTE Morphine Sulfate 2 MG ONCE ONE 09/16 1400 DC 09/16 IV 09/16 1401 1425 Morphine Sulfate 4 MG ONCE ONE 09/16 1245 DC 09/16 IV 09/16 1246 1256 Nicotine 14 MG Q24 09/16 183 AC 09/17 TOP 0830 Ondansetron HCl 4 MG Q6P PRN 09/16 184 AC IV Oxycodone HCl 15 MG Q12 09/16 2199 AC 09/17 PO 0830 Oxycodone HCl 10 MG Q4P PRN 09/16 184 AC PO Oxycodone HCl 15 MG Q4P PRN 09/16 184 AC 09/17 PO 0831 Sodium Chloride 1,000 ML ONCE ONE 09/16 1245 DC 09/16 IV 09/16 1924 1256 Results Last 48 Hours of Labs: Laboratory Tests 09/17 09/16 0550 1153 Chemistry Sodium (137 - 145 mmol/L) 140 140 Potassium (3.5 - 5.1 mmol/L) 4.2 4.6 Chloride (98 - 107 mmol/L) 101 98 Carbon Dioxide (22 - 30 mmol/L) 27 27 Anion Gap (5 - 16) 12 15 BUN (9 - 20 mg/dL) 19 25 H Creatinine (0.7 - 1.2 mg/dL) 0.7 0.7 Estimated GFR (>60 ml/min) > 60 > 60 BUN/Creatinine Ratio (7 - 25 %) 27.1 H 35.7 H Glucose (65 - 99 mg/dL) 100 H Calcium (8.4 - 10.2 mg/dL) 10.4 H Total Bilirubin (0.2 - 1.3 mg/dL) 0.3 AST (17 - 59 U/L) 33 ALT (21 - 72 U/L) 29 Alkaline Phosphatase (< 127 U/L) 57 Total Protein (6.3 - 8.2 g/dL) 8.5 H Albumin (3.5 - 5.0 g/dL) 4.9 Globulin (1.9 - 4.2 gm/dL) 3.6 Albumin/Globulin Ratio (1.1 - 2.2 %) 1.4 Coagulation PT (9.4 - 12.5 SEC) 11.9 INR (0.90 - 1.17) 1.13 Hematology CBC w Diff NO MAN DIFF REQ NO MAN DIFF REQ WBC (4.8 - 10.8 /CUMM) 6.5 5.8 RBC (4.70 - 6.10 /CUMM) 3.06 L 4.05 L Hgb (14.0 - 18.0 G/DL) 9.8 L 13.0 L Hct (42 - 52 %) 29.1 L 38.0 L MCV (80.0 - 94.0 FL) 95.3 H 93.9 MCH (27.0 - 31.0 PG) 32.2 H 32.0 H RDW (11.5 - 14.5 %) 13.5 13.5 Plt Count (130 - 400 /CUMM) 272 413 H MPV (7.4 - 10.4 FL) 7.2 L 6.8 L Gran % (42.2 - 75.2 %) 58.8 51.8 Lymphocytes % (20.5 - 51.1 %) 29.1 35.9 Monocytes % (1.7 - 9.3 %) 7.1 7.0 Eosinophils % (0 - 5 %) 4.7 4.5 Basophils % (0.0 - 2.0 %) 0.3 0.8 Absolute Granulocytes (1.4 - 6.5 /CUMM) 3.8 3.0 Absolute Lymphocytes (1.2 - 3.4 /CUMM) 1.9 2.1 Absolute Monocytes (0.10 - 0.60 /CUMM) 0.5 0.4 Absolute Eosinophils (0.0 - 0.7 /CUMM) 0.3 0.3 Absolute Basophils (0.0 - 0.2 /CUMM) 0 0 PUBS MCHC (33.0 - 37.0 G/DL) 33.8 34.1 Assessment/Plan Assessment/Plan 31 M POD 1 s/p exploration of lumbar surgical site with ayah drain and OR cultures which are pending at this time Cont reg diet Cont pain regimen Cont ancef via PICC until eval by ID Throat culture to r/o audi Minimal AYAH output ? removal Alps, encourage ambulation PT eval for d/c recs F/u OR cultures Dc planning Will d/w Dr. Hatch Core Measures Venous Thromboembolism VTE Risk Factors Surgery No Mechanical VTE Prophylaxis d/t N/A MechProphylax Ordered No VTE Pharm Prophylaxis d/t Surgical Contraindication (per dr. hatch)
--- NOTE | 2017-09-17 10:36 | RADIOLOGY REPORT ---
EXAMINATION: XR PORTABLE CHEST CLINICAL INFORMATION: Postoperative hematoma history of PICC line. Please reevaluate placement of the PICC line. COMPARISON: Portable chest x-ray dated 08/12/2017. TECHNIQUE: Portable frontal view of the chest was obtained. FINDINGS: The tip of the PICC line is currently in the proximal portion of the SVC potentially at the junction of the right subclavian vein and SVC. On the previous study, the tip of the PICC line is present in the distal SVC. The current findings suggest movement of the tip of the PICC line. The lungs are clear bilaterally. There is no evidence of pleural effusion or pneumothorax. The cardiomediastinal silhouette is within normal limits. IMPRESSION: 1. Current position of the tip of the PICC line is at the proximal SVC, potentially at the junction of the subclavian vein and SVC. This represents a significant change compared to the prior study of 08/12/2017. 2. No acute cardiopulmonary findings.
--- NOTE | 2017-09-17 14:06 | Cons- Infect Disease ---
General Information and HPI Consulting Request Date of Consult: 09/17/17 Requested By: Mamie MATUTE,Jonathan Eisenberg Reason for Consult: Rule out paraspinal infection Source of Information: patient, old records History of Present Illness: This is a 31-year-old man status post posterior lumbar stabilization L4 to S1 for chronic back/right lower extremity pain 1 year prior to admission, status post revision of the laminectomy and removal of the hardware (other than the anterior cage and bone graft) 9 weeks prior to admission because of fractured screws, status post I&D of the wound 7 weeks prior to admission after an MRI revealed fluid collections within the paraspinal musculature, with cultures, obtained on antibiotics, negative, status post a repeat I&D 5 weeks prior to admission because of recurrent drainage from his incision, with OR cultures positive for MSSA, discharged on Oxacillin via a PICC, with switch to Cefazolin several weeks prior to admission because of a pruritic rash attributed to Oxacillin, admitted on September 16 for a reexploration of the wound after an MRI 4 days prior to admission, performed because of increasing back pain, revealed a redemonstration of a complex paraspinal soft tissue fluid collection at the L4- L5 level, with no new osseous destruction. He did report chills and sweats for weeks prior to admission but denied any documented fevers. On admission he was afebrile. Laboratory data revealed a white blood cell count of 6000, BUN/ creatinine 25 and 0.7, with normal liver enzymes, INR was normal. He was taken to the OR for an exploration of the wound, with no evidence of infection apparently found. A drain was placed and he was continued on Cefazolin. He has remained afebrile. At present he does report lower back pain and notes some difficulty with voiding. Allergies/Medications Allergies: Coded Allergies: No Known Allergies (06/17/17) Home Med List: Ascorbic Acid (Vitamin C) 1,000 MG TABLET 1 TAB PO DAILY VITAMIN SUPPORT ( Reported) Azilsartan Med/Chlorthalidone (Edarbyclor 40-12.5 MG Tablet) 40 MG-12.5 MG TABLET 1 TAB PO DAILY BP (Reported) NOT GIVEN IN HOSPITAL, [place] AND CHLORTHIADONE GIVEN SEPARATELY Cefazolin Sodium/D5w (Cefazolin 2 G/50 Ml-D5w Bag) 2 GRAM/50 ML PIGGYBACK 2 GM IV Q8 ANTIBIOTIC, INFECTION (Reported) Clobetasol Propionate 0.05 % OINT...G. 1 RAJEEV TOP QPM SKIN (Reported) Cyanocobalamin (Vitamin B-12) 1,000 MCG TABLET 1 TAB PO DAILY VITAMIN SUPPORT (Reported) Diazepam (Valium) 5 MG TABLET 1-2 TAB PO Q8H PRN SPASM Fluocinonide 0.05 % SOLUTION 1 RAJEEV TOP BID SKIN (Reported) apply to affected area(s) Gabapentin (Neurontin) 300 MG CAPSULE 1 CAP PO TID PAIN (Reported) Oxycodone HCl 15 MG TABLET 1 TAB PO BID PAIN (Reported) Oxycodone HCl/Acetaminophen (Percocet 7.5-325 MG Tablet) 7.5 MG-325 MG TABLET 1 TAB PO 4 TIMES/DAY PRN PAIN (Reported) Triamcinolone Acetonide 0.1 % CREAM..G. 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 Home Who Do You Live With? spouse Services at Home: [facility] Primary Language: [place] Smoking Status: Current Everyday Smoker ETOH Use: occasional use Illicit Drug Use: denies illicit drug use Living Will? unknown Power of Appraiser [employer]/HCP? unknown Name of POA/HCP: unknown Functional Ability Ambulation: independent Review of Systems Review of Systems All Other Systems: Reviewed and Negative Exam & Diagnostic Data Last 24 Hrs of Vital Signs/I&O Vital Signs Date Time Temp Pulse Resp B/P B/P Pulse O2 O2 Flow FiO2 Mean Ox Delivery Rate 09/17 0831 128/80 09/17 0712 97.4 71 20 90/60 97 Room Air 09/17 0000 99 Nasal 1.5L Cannula 09/16 2044 99 Nasal 1.5L Cannula 09/16 2044 97.6 65 18 115/58 99 Nasal 1.5L Cannula 09/16 1600 98.9 68 20 110/68 98 Room Air 09/16 1453 98.0 70 16 102/66 96 Room Air Intake & Output 09/17 1600 09/17 0800 09/17 0000 Intake Total 1530 240 Output Total 500 Balance 1030 240 Intake, IV 810 Intake, Oral 720 240 Number 0 Bowel Movements Output, 50 Drainage Output, Urine 450 Patient 170 lb Weight Weight Reported by Patient Measurement Method Physical Exam Other Physical Findings: Afebrile. He is awake and alert in no acute distress. Skin reveals no rash. HEENT negative. Neck is supple with no adenopathy. Lungs are clear. Heart regular rhythm with no murmur. Abdomen is soft, nontender with positive bowel sounds. Back dressing intact over the lower back, with a drain in place with bloody output; no CVA tenderness. Extremities no cyanosis, clubbing or edema; PICC in the right upper extremity with no inflammation at the site. Neuro is without focality. Last 24 Hours of Lab Results: Laboratory Tests 09/17 0550 Chemistry Sodium (137 - 145 mmol/L) 140 Potassium (3.5 - 5.1 mmol/L) 4.2 Chloride (98 - 107 mmol/L) 101 Carbon Dioxide (22 - 30 mmol/L) 27 Anion Gap (5 - 16) 12 BUN (9 - 20 mg/dL) 19 Creatinine (0.7 - 1.2 mg/dL) 0.7 Estimated GFR (>60 ml/min) > 60 BUN/Creatinine Ratio (7 - 25 %) 27.1 H Hematology CBC w Diff NO MAN DIFF REQ WBC (4.8 - 10.8 /CUMM) 6.5 RBC (4.70 - 6.10 /CUMM) 3.06 L Hgb (14.0 - 18.0 G/DL) 9.8 L Hct (42 - 52 %) 29.1 L MCV (80.0 - 94.0 FL) 95.3 H MCH (27.0 - 31.0 PG) 32.2 H RDW (11.5 - 14.5 %) 13.5 Plt Count (130 - 400 /CUMM) 272 MPV (7.4 - 10.4 FL) 7.2 L Gran % (42.2 - 75.2 %) 58.8 Lymphocytes % (20.5 - 51.1 %) 29.1 Monocytes % (1.7 - 9.3 %) 7.1 Eosinophils % (0 - 5 %) 4.7 Basophils % (0.0 - 2.0 %) 0.3 Absolute Granulocytes (1.4 - 6.5 /CUMM) 3.8 Absolute Lymphocytes (1.2 - 3.4 /CUMM) 1.9 Absolute Monocytes (0.10 - 0.60 /CUMM) 0.5 Absolute Eosinophils (0.0 - 0.7 /CUMM) 0.3 Absolute Basophils (0.0 - 0.2 /CUMM) 0 PUBS MCHC (33.0 - 37.0 G/DL) 33.8 Last 24 Hours of César Results: OR cultures x 3 September 16 negative so far Diagnostic Data Recent Imaging Findings: Chest x-ray September 17 reveals the tip of the PICC at the proximal SVC Assessment/Plan Assessment/Plan Impression: This is a 31-year-old man status post posterior lumbar stabilization L4 to S1 for chronic back/right lower extremity pain 1 year prior to admission, diagnosed with a surgical site infection secondary to MSSA 5 weeks prior to admission after several previous surgeries for revision of the laminectomy and removal of the hardware (other than the anterior cage and bone graft) and exploration of the wound, discharged on Oxacillin via a PICC, with a switch to Cefazolin several weeks prior to admission because of a pruritic rash attributed to Oxacillin, admitted on September 16 for a reexploration of the wound after an MRI 4 days prior to admission, performed because of increasing back pain, revealed a complex paraspinal soft tissue fluid collection at the L4-L5 level, found to be afebrile with a normal white blood cell count, with his OR findings apparently negative for any evidence of infection. His OR cultures are so far negative; therefore he can be continued on Cefazolin, with duration dependent on the final cultures. His urinary complaints are likely related to his recent anesthesia or pain medication and urinary retention should be ruled out. Of note the PICC may need to be repositioned given the x-ray findings. Suggestion: 1. Follow-up final OR cultures 2. Recheck ESR 3. Bladder scan to rule out urinary retention 4. Further management of PICC position per Surgery 5. Continue Cefazolin 2 g IV every 8 hours Consult Acknowledgment - Thank you for your consult request.
[2017-09-17 14:24] VITALS: BP 98/58
[2017-09-17 22:16] VITALS: BP 116/62
[2017-09-18 05:53] VITALS: BP 112/68
[2017-09-18 08:22] LABS: ABSOLUTE BASOPHIL COUNT 0 /CUMM (0.0-0.2); ABSOLUTE EOSINOPHIL COUNT 0.5 /CUMM (0.0-0.7); ABSOLUTE GRANULOCYTE CT 3.1 /CUMM (1.4-6.5); ABSOLUTE LYMPH COUNT 1.7 /CUMM (1.2-3.4); ABSOLUTE MONOCYTE COUNT 0.8 /CUMM (0.10-0.60); BASOPHIL % 0.5 % (0.0-2.0); EOSINOPHIL % 8.3 % (0-5); GRANULOCYTE % 50.4 % (42.2-75.2); HEMATOCRIT 30.8 % (42-52); MEAN CORPUSCULAR HGB 32.3 PG (27.0-31.0); MEAN CORPUSCULAR HGB CONC 34.2 G/DL (33.0-37.0); MEAN CORPUSCULAR VOLUME 94.3 FL (80.0-94.0); MEAN PLATELET VOLUME 7.2 FL (7.4-10.4); PLATELET COUNT 282 /CUMM (130-400); RBC DISTRIBUTION WIDTH 13.2 % (11.5-14.5); RED BLOOD CELL CT 3.27 /CUMM (4.70-6.10); WHITE BLOOD CELL COUNT 6.2 /CUMM (4.8-10.8)
--- NOTE | 2017-09-18 09:03 | PN- Orthopedic ---
Subjective Subjective: Patient reporting slow resolution of pain and dysuria. States that he woke up with a headache and some nausea this am but was able to tolerate ambulation with pt with no worsening. Denies chest pain, shortness of breath and difficulty breathing. Objective Vital Signs and I&Os Vital Signs Date Time Temp Pulse Resp B/P B/P Pulse O2 O2 Flow FiO2 Mean Ox Delivery Rate 09/18 0553 98.8 87 20 112/68 94 Room Air 09/17 2216 98.6 73 20 116/62 96 09/17 1424 97.7 74 18 98/58 96 Room Air Intake & Output 09/18 1600 09/18 0800 09/18 0000 09/17 1600 09/17 0800 09/17 0000 Intake Total 853 070 2320 1530 240 Output Total 1010 785 30 500 Balance -410 -185 1270 1030 240 Intake, IV 600 600 600 810 Intake, Oral 700 720 240 Number 0 0 Bowel Movements Output, 10 10 30 50 Drainage Output, Urine 1000 775 450 Patient 170 lb Weight Weight Reported by Patient Measurement Method Physical Exam: General: Alert and oriented x3, no acute distress Cardiac: RRR, s1s2 Pulm: C T A bilaterally, non-labored respiratory effort Extremities: Moves all extremities distal sensation intact. Motor 5/5 in plantar and dorsiflexion bilaterally. Skin warm and well perfused. Bialteral calves soft and non-tender. No redness/erythema at picc insertion site Sugical site: Dressing dry and intact. LATONIA holding suction. Serosanguinous output noted. Assessment/Plan Assessment/Plan This is a 31 year old male, POD 2 s/p I&D lumbar wound. Has been on iv abx for previous infection for which treatment began several weeks prior to this admission. -Cleared by PT for discharge, able to ambulate on stairs with cane -Anticipate dc drain later today with dressing change -Follow up cultures, appreciate ID input with regard to assisted abx treatment plan Will discuss with Dr. Hatch and Sajan but anticipate dc to home today Core Measures Venous Thromboembolism VTE Risk Factors Surgery No Mechanical VTE Prophylaxis d/t N/A MechProphylax Ordered No VTE Pharm Prophylaxis d/t Surgical Contraindication (per dr. hatch)
--- NOTE | 2017-09-18 14:21 | PN- Infect Dx ---
Subjective Subjective: Afebrile. He feels somewhat improved with decreased back pain and with improvement in his urinary symptoms. Objective Last 24 Hrs of Vital Signs/I&O Vital Signs Date Time Temp Pulse Resp B/P B/P Pulse O2 O2 Flow FiO2 Mean Ox Delivery Rate 09/18 1010 74 110/66 09/18 0553 98.8 87 20 112/68 94 Room Air 09/17 2216 98.6 73 20 116/62 96 09/17 1424 97.7 74 18 98/58 96 Room Air Intake & Output 09/18 1600 09/18 0800 09/18 0000 Intake Total 670 600 600 Output Total 1010 785 Balance 670 -410 -185 Intake, IV 70 600 600 Intake, Oral 600 Output, 10 10 Drainage Output, Urine 1000 775 Physical Exam Other Physical Findings: He appears comfortable in no acute distress Back dressing intact; drain remains in place with bloody drainage Extremities PICC in the right upper extremity with mild erythema around the dressing Results Last 24 Hours of Lab Results: Laboratory Tests 09/18 09/17 0550 1530 Hematology CBC w Diff NO MAN DIFF REQ WBC (4.8 - 10.8 /CUMM) 6.2 RBC (4.70 - 6.10 /CUMM) 3.27 L Hgb (14.0 - 18.0 G/DL) 10.6 L Hct (42 - 52 %) 30.8 L MCV (80.0 - 94.0 FL) 94.3 H MCH (27.0 - 31.0 PG) 32.3 H RDW (11.5 - 14.5 %) 13.2 Plt Count (130 - 400 /CUMM) 282 MPV (7.4 - 10.4 FL) 7.2 L Gran % (42.2 - 75.2 %) 50.4 Lymphocytes % (20.5 - 51.1 %) 28.3 Monocytes % (1.7 - 9.3 %) 12.5 H Eosinophils % (0 - 5 %) 8.3 H Basophils % (0.0 - 2.0 %) 0.5 Absolute Granulocytes (1.4 - 6.5 /CUMM) 3.1 Absolute Lymphocytes (1.2 - 3.4 /CUMM) 1.7 Absolute Monocytes (0.10 - 0.60 /CUMM) 0.8 H Absolute Eosinophils (0.0 - 0.7 /CUMM) 0.5 Absolute Basophils (0.0 - 0.2 /CUMM) 0 PUBS MCHC (33.0 - 37.0 G/DL) 34.2 Urines Urine Color (YEL,AMB,STR) YEL Urine Clarity (CLEAR) CLEAR Urine pH (5.0 - 8.0) 7.0 Ur Specific [place] (1.001 - 1.035) 1.010 Urine Protein (NEG,<30 MG/DL) NEG Urine Ketones (NEG) NEG Urine Nitrite (NEG) NEG Urine Bilirubin (NEG) NEG Urine Urobilinogen (0.1 - 1.0 EU/dl) 0.2 Ur Leukocyte Esterase (NEG) NEG Ur Microscopic EXAM NOT REQUIRED Urine Hemoglobin (NEG) NEG Urine Glucose (N MG/DL) NEG Last 24 Hours of [place] Results: OR cultures September 16 labeled wall of fluid collection/tissue lower back, aspirate of hematoma and right paraspinal subfascial fluid all negative so far Assessment/Plan Impression: Stable status post I&D of a complex paraspinal soft tissue collection at L4-L5 2 days ago, felt possibly to represent a hematoma, with his OR cultures so far negative. He remains afebrile with a normal white blood cell count on Cefazolin and, given the fact that he also underwent debridement in the OR, his antibiotics will need to be continued for another 6 weeks. His PICC has been withdrawn 4 cm but it will be able to be left in place. He has some inflammation around the dressing over the PICC, likely representing an allergic reaction to the dressing. Of note his CBC still reveals eosinophilia, possibly secondary to the Cefazolin, though his pruritus and rash have improved with discontinuation of the Oxacillin as an outpatient. Suggestion: 1. Follow-up final OR cultures 2. Recheck ESR (will order) 3. Continue Cefazolin 2 g IV every 8 hours (until October 28) 4. Weekly ESR while on Cefazolin
[2017-09-18 14:49] VITALS: BP 110/60
[2017-09-18 21:16] VITALS: BP 110/66
[2017-09-19 06:25] VITALS: BP 108/60
--- NOTE | 2017-09-19 08:48 | PN- Orthopedic ---
Subjective Subjective: No change clinically, still with some pain, no other complaints. No fevers or chills Objective Vital Signs and I&Os Vital Signs Date Time Temp Pulse Resp B/P B/P Pulse O2 O2 Flow FiO2 Mean Ox Delivery Rate 09/19 0625 98.2 71 20 108/60 94 09/18 2116 98.6 67 20 110/66 96 Room Air 09/18 1449 98.4 82 20 110/60 96 Room Air 09/18 1010 74 110/66 Intake & Output 09/19 1600 09/19 0800 09/19 0000 09/18 1600 09/18 0800 09/18 0000 Intake Total 240 480 670 600 600 Output Total 1010 785 Balance 240 480 670 -410 -185 Intake, IV 70 600 600 Intake, Oral 240 480 600 Output, 10 10 Drainage Output, Urine 1000 775 Physical Exam: Well-developed well-nourished no apparent distress. HEENT: Atraumatic, extraocular motion intact Neck: Supple, no lymphadenopathy Respiratory: No respiratory distress Extremities: No edema, no calf pain Neuro: Alert and oriented x3 Psych: Mood affect normal, normal memory normal judgment. Skin: Warm and dry, no rash on exposed skin Results Last 48 Hours of Labs: Laboratory Tests 09/18 09/18 1545 0550 Hematology CBC w Diff NO MAN DIFF REQ WBC (4.8 - 10.8 /CUMM) 6.2 RBC (4.70 - 6.10 /CUMM) 3.27 L Hgb (14.0 - 18.0 G/DL) 10.6 L Hct (42 - 52 %) 30.8 L MCV (80.0 - 94.0 FL) 94.3 H MCH (27.0 - 31.0 PG) 32.3 H RDW (11.5 - 14.5 %) 13.2 Plt Count (130 - 400 /CUMM) 282 MPV (7.4 - 10.4 FL) 7.2 L Gran % (42.2 - 75.2 %) 50.4 Lymphocytes % (20.5 - 51.1 %) 28.3 Monocytes % (1.7 - 9.3 %) 12.5 H Eosinophils % (0 - 5 %) 8.3 H Basophils % (0.0 - 2.0 %) 0.5 Absolute Granulocytes (1.4 - 6.5 /CUMM) 3.1 Absolute Lymphocytes (1.2 - 3.4 /CUMM) 1.7 Absolute Monocytes (0.10 - 0.60 /CUMM) 0.8 H Absolute Eosinophils (0.0 - 0.7 /CUMM) 0.5 Absolute Basophils (0.0 - 0.2 /CUMM) 0 PUBS MCHC (33.0 - 37.0 G/DL) 34.2 ESR [place] (0 - 10 MM) 63 H 09/17 1530 Urines Urine Color (YEL,AMB,STR) YEL Urine Clarity (CLEAR) CLEAR Urine pH (5.0 - 8.0) 7.0 Ur Specific [place] (1.001 - 1.035) 1.010 Urine Protein (NEG,<30 MG/DL) NEG Urine Ketones (NEG) NEG Urine Nitrite (NEG) NEG Urine Bilirubin (NEG) NEG Urine Urobilinogen (0.1 - 1.0 EU/dl) 0.2 Ur Leukocyte Esterase (NEG) NEG Ur Microscopic EXAM NOT REQUIRED Urine Hemoglobin (NEG) NEG Urine Glucose (N MG/DL) NEG Assessment/Plan Assessment/Plan This is a 31 year old male, POD 3 s/p I&D lumbar wound. -Cleared by PT for discharge, able to ambulate on stairs with cane -Patient to be seen by Jonathan Hatch MD later today, likely discharge home after this -Pain medication has been increased -Follow up final cultures today, appreciate ID input with regard to long term acute care registered nurse abx treatment plan Core Measures Venous Thromboembolism VTE Risk Factors Surgery No Mechanical VTE Prophylaxis d/t N/A MechProphylax Ordered No VTE Pharm Prophylaxis d/t Surgical Contraindication (per dr. hatch)
[2017-09-19] MEDS ORDERED: OXYCODONE HCL5 M1 PO ×2 (08:57→11:57)
[2017-09-19] MEDS ORDERED: OXYCONTIN15 M1 PO ×2 (08:57→11:57)
--- NOTE | 2017-09-19 09:01 | Patient Discharge Instructions ---
Discharge Instructions General Discharge Information You were seen/treated for: Postoperative lumbar wound infection You had these procedures: Irrigation and debridement lumbar surgical site Watch for these problems: Worsening redness, discharge, drainage from the wound, fever, flulike illness Call Surgeon to remove: Tabitha Do not soak the wound: Yes Daily wet to dry dressings: No No bath, but you may shower: Yes Other wound care: Dry dressing changes daily Special Instructions: Take antibiotics through the PICC line as directed 3 times per day Take pain medication as needed Call for an appointment with Dr. Hatch in one week and an appointment with Dr. Moeller in 2 weeks You will need weekly blood tests to check your inflammatory levels. A prescription has been provided for this, try to go every Saturday Diet Continue normal diet: Yes Recommended Diet: Regular Activity Full Activity/No Limits: No Activity Self Limited: Yes Acute Coronary Syndrome Inclusion Criteria At DC or during hospital stay patient has or had the following: ACS DIAGNOSIS No Discharge Core Measures Meds if any: Prescribed or Continued at Discharge Meds if any: NOT Prescribed or Continued at Discharge Congestive Heart Failure Inclusion Criteria At DC or during hospital stay patient has or had the following: CHF DIAGNOSIS No Discharge Core Measures Meds if any: Prescribed or Continued at Discharge Meds if any: NOT Prescribed or Continued at Discharge Cerebrovascular accident Inclusion Criteria At DC or during hospital stay patient has or had the following: CVA/TIA Diagnosis No Discharge Core Measures Meds if any: Prescribed or Continued at Discharge Meds if any: NOT Prescribed or Continued at Discharge Venous thromboembolism Inclusion Criteria VTE Diagnosis No VTE Type NONE VTE Confirmed by (Test) NONE Discharge Core Measures - Per Current guidelines, there needs to be overlap - treatment for the first 5 days of Warfarin therapy. - If discharged on Warfarin prior to 5 days of - overlap therapy, the patient will need to be - assessed for post discharge needs including - *Post discharge parental anticoagulation - *Warfarin and/or parental anticoagulation education - *Follow up date to check INR post discharge At least 5 days overlap therapy as Inpatient No Meds if any: Prescribed or Continued at Discharge Note: Overlap Therapy is Warfarin and Anticoagulant Meds if any: NOT Prescribed or Continued at Discharge
--- NOTE | 2017-09-19 09:04 | Surgical Discharge Summary ---
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 Home Who Do You Live With? Spouse Services at Home: [facility] What is Your Primary Language? Ukrainian ETOH Use: occasional use Hospital Course Course Attending Physician: Mamie MATUTE,Jonathan Eisenberg Primary Care Physician: Mayelin MATUTE,[place] [facility] Course: Patient has a history of L4 to S1 fusion and postoperative infection, return to the ER with concerns of worsening infection and a fluid collection which was evacuated via incision and drainage in the OR. He was continued on IV antibiotics through his PICC line. He was seen by infectious disease. He also had cultures of his urine and respiratory which thus far has been negative as well as the lumbar culture has been negative as well. He did not have any neurologic compromise or worsening signs of infection while he was here. A drain was placed and removed postop day #2. His pain was controlled and he is ambulatory without difficulty. He was deemed stable for discharge home to be continued on antibiotics via PICC line, Ancef 2 g 3 times a day with close follow-up with his orthopedic surgeon Jonathan Hatch MD and Pipe Moeller MD. He is also scheduled to have weekly ESRs Allergies: Coded Allergies: No Known Allergies (06/17/17) Disposition Summary Disposition Principal Diagnosis: Postsurgical Lumbar wound infection Additional Diagnosis: None Discharge Disposition: home or self care Discharge Instructions General Discharge Information Code Status: Full Code Patient's Diet: Regular Patient's Activity: As tolerated Follow-Up Instructions/Appts: With Jonathan Hatch MD and Pipe Moeller MD IV antibiotics via PICC line Pain medication as needed Medications at Discharge Discharge Medications: Continue taking these medications: Azilsartan Med/Chlorthalidone (Edarbyclor 40-12.5 MG Tablet) 40 MG-12.5 MG TABLET 1 Tablet ORAL DAILY Instructions: NOT GIVEN IN HOSPITAL, [place] AND CHLORTHIADONE GIVEN SEPARATELY Comments: Last Taken:08/13/17 Time:0830am see note above Gabapentin (Neurontin) 300 MG CAPSULE 1 Capsule ORAL THREE TIMES DAILY Comments: Last Taken: 08/13/17 Time: 0830 AM Diazepam (Valium) 5 MG TABLET 1-2 Tablet ORAL Q8H as needed for SPASM Qty = 60 Comments: Last Taken: 08/12/17 Time: 1030pm 5mg given Cefazolin Sodium/D5w (Cefazolin 2 G/50 Ml-D5w Bag) 2 GRAM/50 ML PIGGYBACK 2 Gram INTRAVEN EVERY 8 HOURS Fluocinonide (Fluocinonide) 0.05 % SOLUTION 1 Application On the skin TWICE DAILY Qty = 60 Instructions: apply to affected area(s) Triamcinolone Acetonide (Triamcinolone Acetonide) 0.1 % CREAM..G. 1 Application On the skin DAILY Qty = 454 Clobetasol Propionate (Clobetasol Propionate) 0.05 % OINT...G. 1 Application On the skin Every night Qty = 120 Cyanocobalamin (Vitamin B-12) 1,000 MCG TABLET 1 Tablet ORAL DAILY Ascorbic Acid (Vitamin C) 1,000 MG TABLET 1 Tablet ORAL DAILY Start taking the following new medications: Oxycodone HCl (Oxycontin) 15 MG TAB.ER.12H 15 Milligram ORAL THREE TIMES DAILY Qty = 30 No Refills Oxycodone HCl (Oxycodone HCl) 5 MG TABLET 2-3 Tablet ORAL EVERY 4 HOURS NEEDED as needed for PAIN SCALE Qty = 40 No Refills
[2017-09-19 13:24] VITALS: BP 104/70
[2017-09-19] MEDS ORDERED: ZOFRAN ODT4 M1 SL (13:32)
[2017-09-19] MEDS ORDERED: VALIUM5 M2 PO (13:32)
--- NOTE | 2017-09-22 11:00 | Operative Report ---
Operative/Inv Procedure Report Surgery Date: 09/16/17 Name of Procedure: 1) L4-S1 Bilateral (Right Greater Than Left) Lower Lumbar And Lumbosacral Surgical Site Incision, Exploration, Culture, Fluid Collection Evacuation And Irrigation For Potentially Infected Recurrent Postoperative Paraspinal Hematoma (Dc, P.A.-C) 2) L4-S1 Right Lower Lumbar And Lumbosacral Superficial Sharp (Scalpel), Blunt Mechanical (Curette) And Hydrodynamic (Pulse Lavage) Debridement Of All Surgical Site Tissues Down To And Including The [place] Sacral Alar Osseous And Fully Incorporated Right L5-S1 Fusion Mass Tissue Level (Initial Section - Total Debrided Osseous Area Of ~15 Square Centimeters) (Dc, P.A.-C) 3) L5-S1 Right Lumbosacral Posterobilateral Fusion Mass Exploration (With Visual And Palpation Assessment Of Integrity, Keller And Incorporation As Well As To Evaluate For Intraosseous Abscess Or Other Sequestered Origin Of Infection Which Would Not Be Optimally Treatable With Intravenous Antibiotics And Which Was Ruled Out By This Evaluation With No Evidence Found For [place] Osseous, Fusion Mass Or Graft Abscess Or Gross Osteomyelitis) (Dc, P.A.-C) Pre-Operative Diagnosis: Primary Surgically Treated Diagnoses: 1) Postoperative Hematoma (Potentially Infected Based On Correlation With Increased Back Pain Localized To Same Area Despite Treatment With Intravenous Antibiotics) 2) L4-S1 Bilateral Lower Lumbar And Lumbosacral Posterior Element, Fusion Mass And Recent Allograft Substitute Osteopromotive Material Non-Abscessed Osteomyelitis Currently Being Treated With Extended Course Of Infectious Disease Service Directed, Culture And Sensitivity Optimized Intravenous Antibiotics 3) L4-S1 Infected Lumbosacral Region Surgical Site (Subsequent Operative Assessment And Management Of Condition Previously Treated With Surgical Intervention And Currently Undergoing Active Intravenous Antibiotic Treatment) 4) Severe, Activity And Functionally Limiting, Intermittently Incapacitating Lumbosacral Region Back Pain Post-Operative Diagnosis: Same as preoperative diagnosis list. Estimated Blood Loss: 50ml to 100ml Surgeon/Biomass Plant Technician: GEORGIE WILSON MD - Primary Admitting Orthopaedic Surgeon Surgical Providers: Georgie Wilson M.D. - Orthopaedic Surgeon (Primary Admitting Surgeon) Holger Cook P.A.-C - Concrete Polisher Anesthesia: general endotracheal tube Monitors: Standard general anesthesia and other perioperative monitoring was performed per anesthesia protocols. Refer to anesthesia records for details. IV Fluids: Standard anesthesia perioperative fluid management was performed without requirement for additional or emergent fluid resuscitation. Refer to anesthesia records for details. Implants: Implants Removed: None Graft Removed: None. Incorporating Graft Was Superficially Debrided But Otherwise Retained. Implants Placed: None Graft Placed: None Urine Output: Refer to anesthesia records for details. Drains: Large bore (15 Kiswahili) subfascial LATONIA drain x 1 to medium bulb suction reservoir. Fenestrated portion of drain tube placed in right posterolateral lumbosacral space (lateral gutter) and crossing midline into left paraspinal space with unfenestrated portion through deep muscle, fascia, subcutaneous tissue, and skin of left inferolateral aspect of surgical site coronel without suture fixation. Specimens: No pathology specimens sent. See Microbiology section for description of specimens. Microbiology: Multiple right-sided subfascial labelled fluid and tissue culture specimens sent to microbiology for analysis (gram stain, culture and sensitivity) Complications: None Operative/Procedure Note Note: Preoperative Holding Area Assessment/Preparation: The patient was evaluated in the preoperative holding area prior to surgery and no clinical changes or contraindications to surgical intervention were noted compared to the stable preoperative baseline findings documented on orthopaedic office and clearance general, neurovascular and musculoskeletal evaluations. His tenderness remained quite focal at and near the well-healed upper right- sided drain site from his previous surgery with no sign of erythema, inflammation, palpable fluid collection or dehiscence at the drain site or at the midline incision which was not particularly tender. His pain was lower this time than prior to his previous I&D although his recurrent fluid collection on MRI appeared to be in the same location as before. His rash was significantly improved since recent office evaluation presumably due to the use of topical ointment prescribed by his skein bander. The surgical plan and site were confirmed with the patient and preoperative paperwork was finalized. The region of the intended surgical site was cleansed, prepped and marked per protocol. The primary surgeon, anesthesia care team members, and operating room staff confirmed the patient identity, surgical procedure, and operative site as well as other clinical details with the patient in an initial documented preoperative confirmation (awake time out) prior to the administration of significant sedation or anesthesia. Surgical Procedure: The procedure was performed by Dr. Wilson who was present and served as the primary surgeon for all critical intraoperative and perioperative decisions and interventions. Set-Up/Positioning/Exposure - The patient was brought to the operating room in stable condition and underwent uncomplicated induction of general anesthesia, intubation, and placement of all appropriate monitors, lines and catheters without difficulty. No antibiotics were given until all cultures were obtained following complete initial incision, dissection, exposure, evacuation of fluid collection and debridement. Thereafter, the patient was given 2 grams of IV Ancef. No steroids were administered because of the patient's active lumbar surgical site infection. The patient was positioned prone on the [facility] operating table in standard fashion for a lower lumbar irrigation and debridement procedure followed by exploration of the posterobilateral fusion mass. Care was taken to protect and stabilize the spine during transfer, avoid positions of nerve stretch, pad all pressure points, and support the head without any pressure on the eyes using a foam head rest and head-holding frame. The arms were abducted less than 90 degrees at the shoulders, flexed less than 90 degrees at the elbows and supported on well-padded arm-boards with additional foam padding from the axillary regions to the hands and all pressure points either fully padded or supported without any contact at all between pads. The primary surgeon, anesthesia care team, and operating room staff again documented the patient identity, surgical procedure, and operative site as well as other clinical details in a final documented confirmation (final time out) prior to beginning the procedure. Prior to any incision being made, the lumbar region was prepped and a spinal needle attached to a 10 cc syringe was advanced into the region of maximal tenderness and angled toward the region of fluid collection on MRI. Multiple passes were attampted but only a very small amount of bloody fluid was aspirated and sent to the microbiology laboratory for culture. After the surgical site was again sterilely prepped and draped using standard technique with DuraPrep, the entire length of the patient's previous incision was mapped with a sterile surgical marker and reopened using a #10 scalpel blade. This dissection was continued down to the fascial level and all superficial suture material was removed. The margins of the surgical site showed no signs of infected or devitalized subcutaneous tissue and so only minimal and superficial mechanical debridement using a large straight curette down to healthy, viable and well vascularized tissue was required at this level. No fluid or hematoma was noted at this superficial level. Hemostasis was achieved using Bovie electrocautery beginning with the incision and continuing throughout the procedure with settings appropriate to each progressive level. No gross purulence was noted in the suprafascial subcutaneous space and there was no sign of direct communication with the subfascial deep space by inspection or palpation at the base of the debrided dehiscence region. In fact, the lumbosacral fascia was found to be well healed by visual and palpation assessment with no sign of dehiscence or loosening defect within the repair. No purulent material or devitalized tissue was found at the fascial level. Gentle bilateral pressure applied downward and toward the midline at the fascial level failed to result in any efflux of fluid between the fascial sutures. The lumbosacral fascia was divided over both sides of the L5 and S1 spinous process tips as well as the bridging interspinous ligament segments between them using the Bovie electrocautery which was also used to maintain hemostasis throughout the deep exposure. Care was taken to preserve the interspinous ligament segments so as to maintain optimal postoperative stability and motion segment ligamentous tension. During this process all previously placed fascial sutures were removed. It should be noted that even after suture removal, the fascia had to be mechanically dissected using a Juarez elevator to reopen it following the last surgery several weeks ago as the entire length of the fascial repair appeared to be healing well without any sign of tissue compromise, dehiscence or deep space communication. Initial deep dissection was continued down the right side of the S1 spinous process and over the sacral ala without detecting any fluid collection or hematoma. With the sacral ala exposed and no evidence of infection, osteomyelitis or other abnormality at this level, the dissection was extended into the right side wall of the surgical site toward the area of the fluid collection seen on MRI. A small pocket was entered in the region correscponding to the MRI documented collection and thin, dark fluid was evacuated and sent for culture. The side- coronel of the cavity were then debrided using Leksell rongeurs and this debrided tissue (potential abscess wall) was sent as tissue culture to microbiology for gram stain and culture analysis. The margins of the subcutaneous tissue throughout the remaining length of the surgical site appeared normal with good blood supply and no evidence of gross compromise or infection. These tissues were also mechanically debrided taking care to remove only the superficial layer in healthy appearing regions. This dissection allowed exposure from the superior tip of the L5 spinous process to the sacral ala on the right overlying the intended L5-S1 operative level where the fluid collection had been seen on MRI and where the patient's pain had been concentrated while preserving healthy subcutaneous tissue flaps for primary closure and minimizing the potential need for soft tissue advancement at the end of the procedure particularly given his history of multiple lumbar procedure. The deep dissection was extended laterally and superiorly to the lateral recess and fusion mass in that region. Care was taken to keep this dissection out lateral and avoid extension medially into the region of his laminotomy defect at that level since there was no radiologic or intraoperative indication of any communication between the fluid collection and laminotomy site or any involvement of the epidural space, anterior column structures or impants. The fusion mass appeared to be fully incorporating with no sign of loose graft, pseudoarthrotic tissue cleft or gross osteomyelitis. Therefore only the superficial surface was debrided with the remaining incorporating and healthy-appearing fusion mass left intact. With all dissection completed, cerebellar retractors were placed for optimal exposure. Scalpel, Leksell rongeur, large curettes and Juarez elevators were used to remove any potential compromised or infected deep soft or osseous tissue from all exposed surfaces of the surgical site coronel on theright side. Some of this tissue was sent along with the tissue bordering the cavity of the fluid collection. Dissection was extended only a few centimeters to the left of midline to expose the minimal area of possible paramedian fluid collection extension seen on MRI. No separate fluid collection or cavity was found on the left and so no further lateral or deep (below the mid-depth of the spiinous process) on that side was performed. Once all surfaces were sharply and mechanically debrided, 9 liters of Bacitracin irrigant pulse lavage hydrodynamic debridement was performed covering all exposed surfaces equally. At intervals throughout this process the retractors were removed so that the coronel of the surgical site behind them could be effectively debrided and pulse irrigated. After completion of this process, there was no suggestion of retained compromised tissue, hematoma or fluid collection. The exposed tissue surfaces all appeared viable, healthy, well vascularized and optimized for closure and healing. There was no sign of efflux of draining fluid from any region within the surgical site and no suggestion of deeper (epidural, intracanal or anterior structure) involvement. Therefore, the laminae and laminotomy sites were not exposed in this case as the yield was felt to be negligible with only the potential risks being significantly increased. Closure/Recovery - The surgical site was thoroughly irrigated and hemostasis was carefully achieved prior to closure. A single large bore subfascial LATONIA drains were placed with the fenestrated portion overlying the primarily dissected right lateral intertransverse space, fusion mass and sacral ala and a portion extending into the more superficial (but still subfascial intramuscular) evacuated fluid collection site and the unfenestrated portion crossing the midline and exiting through the inferior left wall of the surgical site. Initial counts were correct prior to closure. The deep lumbar muscular layer was reapproximated using #0 Vicryl interrupted suture technique so as to minimize open subfascial space for hematoma collection. This suture material was used as the patient has now had potential issues with several different suture types and, now that his site appears to be clean and healing steadily from the base, absorbable suture material was felt to be the best choice for his shelter prognosis at this point. The fascial layer was reapproximated in a [id number] closure using #0 Vicryl interrupted, [id number] suture technique. The suprafacial tissues were thoroughly irrigated prior to standard superficial closure. The deep suprafascial closure was performed with #2-0 Vicryl interrupted, simple suture technique. The superficial subcutaneous layer was closed with #3-0 Vicryl inverted, interrupted, simple sutures. The skin was closed using oral with the edges everted. A standard, sterile Xeroform dressing was placed, covered with folded fluff gauze 6x6 sponges and ABD pads. Paper tape was used to hold the dressing in place with good surgical site and drain site coverage. Paper tape was used as the patient has demonstrated repeated skin reaction and rash assocated with multiple other types of adhesive but has only minimal reaction to paper tape. All counts were correct prior to removing the drapes. The patient was turned into the supine position on the hospital bed using careful log-roll technique, avoiding torsional stress and stabilizing the lumbar region during transfer. He was then extubated in the operating room without difficulty. Recovery Room Assessment: The patient was transported to the recovery room in stable condition where gross neurological examination showed normal function with no deficits or worsening compared to his pre-operative assessments on initial recovery from anesthesia. The patient will follow the usual postoperative protocol for lower lumbar incision, drainage, debridement and exploration of fusion for probable recurrent infected hematoma. Some adjustments and accommodations will likely need to be made to the standard protocol because of his complex lumbar surgical history, need for prolonged IV antibiotics similar to the protocols used for non -abscessed but complex osteomyelitis than for infected hematoma without osseous involvement. The infectious disease service was involved in his evaluation and decision-making prior to surgry and will be consulted on POD #1 in the hospital. The patient will be continued on Cafazolin until culture and sensitivity microbiology results are available from today's operative cultures at which point more definitive infectious disease service consultation recommendations will be followed for either continued or altered longer term antibiotic treatment. His duration of treatment will likely be extended. Specific decisions in this regard will be deferred to the infectious disease consultation service. His care plan following the hardware removal and revision fusion procedure performed on 07/04/2017 will proceed largely unchanged except for the planned addition of home antibiotic regimen and some delay of progression of activity given that he has had multiple surgeries over only a few weeks time. Due to his intermittent but prolonged and intermediate-dose narcotic requirements he will need intermediate to high dose narcotic oral and intravenous dosing postoperatively and may also require a longer than usual hospital stay (likely 3 total days or more) to achieve sufficient pain control on oral analgesic medication sufficient for safe and comfortable discharge compared to other similar cases. Discharge Disposition: PACU CC: Mamie MATUTE,Georgie Eisenberg; Holger Fisher
== END 2017-09-19 14:27 | disposition home health service (06) | DRG 857 ==
LOC: ERH 11:05 → ER-OR 11:31 → PACUH 16:51 → 2NB 16:51 → ENRESERV 19:27 → ENTRNSPT 20:11 → EDTRNSPTSTS 20:21 → 2NB 20:26 → CMPTRNSPT 20:39 → ENPENDDIS 09-19 12:19 → 2NB 09-19 14:27
PROVIDERS: Physician Assistant Medical; Physician Assistant Surgical
PROC: 0QB10ZZ Excision of Sacrum, Open Approach (ICD-10-PCS; principal; 2017-09-16)
DX: T81.4XXA Infection following a procedure, initial encounter (principal); L02.219 Cutaneous abscess of trunk, unspecified; I10 Essential (primary) hypertension; B95.61 Methicillin susceptible Staphylococcus aureus infection as the cause of diseases classified elsewhere; Y83.8 Other surgical procedures as the cause of abnormal reaction of the patient, or of later complication, without mention of misadventure at the time of the procedure; G89.29 Other chronic pain; F17.210 Nicotine dependence, cigarettes, uncomplicated
CPT/HCPCS: 2NBSP; 87070; 87075; 36415; 71045; 81003; 82436; 87086; 96374; 96376; 97116-GO; 97161-GP; 97530-GO; C9399; J0131; J0690; J1170; J2250; J2405; J2997; J3010; J7042

== ENCOUNTER 2017-09-20 12:21 | Emergency (ER) | payer OTHER ==
[~2017-09-20] VITALS: Ht 172.7 cm; Wt 77.1 kg
[~2017-09-20 12:21] MED LIST changes: +CEFAZOLIN2 GM/50 M1 IV; +CLOBETASOL PROP15 G1 TOP; +FLUOCINONIDE60 ML TOP; +OXYCODONE HCL5 M1 PO; +OXYCONTIN15 M1 PO; +TRIAMCINOLONE A15 G1 TOP; +VITAMIN C1000 M4 PO; +ZOFRAN ODT4 M1 SL
--- NOTE | 2017-09-20 13:56 | ED GENERAL ADULT ---
History of Present Illness General Chief Complaint: General Adult Stated Complaint: PER PT ?CENTRAL LINE INFECTON D/C YESTERDAY Source: patient, family, old records Exam Limitations: no limitations Vital Signs & Intake/Output Vital Signs & Intake/Output Vital Signs Date Time Temp Pulse Resp B/P B/P Pulse O2 O2 Flow FiO2 Mean Ox Delivery Rate 09/20 1547 96.0 69 16 109/58 99 Room Air 09/20 1451 Room Air Room Air 09/20 1236 98.3 84 20 99/65 97 Room Air ED Intake and Output 09/21 0000 09/20 1200 Intake Total Output Total Balance Patient 170 lb Weight Weight Reported by Patient Measurement Method Allergies Coded Allergies: No Known Allergies (06/17/17) Reconcile Medications Ascorbic Acid (Vitamin C) 1,000 MG TABLET 1 TAB PO DAILY VITAMIN SUPPORT ( Reported) Azilsartan Med/Chlorthalidone (Edarbyclor 40-12.5 MG Tablet) 40 MG-12.5 MG TABLET 1 TAB PO DAILY BP (Reported) NOT GIVEN IN HOSPITAL, [place] AND CHLORTHIADONE GIVEN SEPARATELY Cefazolin Sodium/D5w (Cefazolin 2 G/50 Ml-D5w Bag) 2 GRAM/50 ML PIGGYBACK 2 GM IV Q8 ANTIBIOTIC, INFECTION (Reported) Clobetasol Propionate 0.05 % OINT...G. 1 RAJEEV TOP QPM SKIN (Reported) Cyanocobalamin (Vitamin B-12) 1,000 MCG TABLET 1 TAB PO DAILY VITAMIN SUPPORT (Reported) Diazepam (Valium) 5 MG TABLET 1 TAB PO TIDPRN PRN spasm Diazepam (Valium) 5 MG TABLET 1-2 TAB PO Q8H PRN SPASM Fluocinonide 0.05 % SOLUTION 1 RAJEEV TOP BID SKIN (Reported) apply to affected area(s) Gabapentin (Neurontin) 300 MG CAPSULE 1 CAP PO TID PAIN (Reported) Ondansetron (Zofran Odt) 4 MG TAB.RAPDIS 1 TAB SL TID PRN nausea Oxycodone HCl (Oxycontin) 15 MG TAB.ER.12H 15 MG PO TID pain provided by dr Hatch Oxycodone HCl 5 MG TABLET 2-3 TAB PO Q4P PRN PAIN SCALE provided by dr Hatch Triamcinolone Acetonide 0.1 % CREAM..G. 1 RAJEEV TOP DAILY SKIN (Reported) Triage Note: STATES HE HAS HAD HIS PICC LINE IN SINCE 08/12/17. WAS D/C FROM HERE YESTERDAY AND HAD A DRESSING CHANGE YESTERDAY FROM HOME IV NURSE. + SWELLING AND IRRITATION TO ARM. DR DYSON SENT HIM IN FOR U/S TO SEE IF PICC IS IN PLACE. ALSO POSSIBLE +BLOOD CULTURE DONE IN THE O.R ON SATURDAY HERE Triage Nurses Notes Reviewed? yes Onset: Gradual Duration: day(s): Timing: recent history Injury Environment: home Severity: mild HPI: 31-year-old male with history of active osteomyelitis presents emergency department complaining of displacement and PICC line. Patient was discharged from hospital yesterday, currently on daily cephalosporin antibiotics for osteomyelitis of lumbar spine. Visiting nurse evaluated PICC line today and change dressing around PICC line however saw that line appeared to be coming out somewhat. Patient reports erythema around PICC line which he believes is related to irritation from dressings. The patient called Dr. Zamora it was recommended he reported here to the emergency department for further assessment. (Joanna MUSA,Kailey Adam) Past History Travel History Traveled to [place] past 21 day No Medical History Any Pertinent Medical History? 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 No (Joanna MUSA,Kailey Adam) Review of Systems Review of Systems Constitutional: Reports: no symptoms. EENTM: Reports: no symptoms. Respiratory: Reports: no symptoms. Cardiovascular: Reports: no symptoms. GI: Reports: no symptoms. Genitourinary: Reports: no symptoms. Musculoskeletal: Reports: no symptoms. Skin: Reports: see HPI. Neurological/Psychological: Reports: no symptoms. Hematologic/Endocrine: Reports: no symptoms. Immunologic/Allergic: Reports: no symptoms. All Other Systems: Reviewed and Negative (Joanna MUSA,Kailey Adam) Physical Exam Physical Exam General Appearance: well developed/nourished, no apparent distress, alert, awake Head: atraumatic, normal appearance Eyes: Bilateral: normal appearance. Ears, Nose, Throat: hearing grossly normal Neck: normal inspection, supple, full range of motion Respiratory: no respiratory distress Peripheral Pulses: 2+ radial (R), 2+ radial (L) Back: normal range of motion, lumbar spine: healing surgical scar with oral in place, surrounding erythema, warmth, tenderness Extremities: Right arm: PIC line in place with surrounding mild erythema, no swelling or warmth Neurologic/Psych: awake, alert, oriented x 3 Skin: see erythema of right arm above Core Measures ACS in differential dx? No CVA/TIA Diagnosis: No Sepsis Present: No Sepsis Focused Exam Completed? No (Joanna MUSA,Kailey Adam) Progress Differential Diagnoses I considered the following diagnoses in my evaluation of the patient: [ Cellulitis, contact dermatitis, PICC line dysfunction, DVT] Plan of Care: Current Medications Sig/Vane Start time Last Medication Dose Stop Time Status Admin Ketorolac 30 MG ONCE ONE 09/20 1600 UNVr Tromethamine 09/20 1601 (Toradol) Spoke with Dr. Zamora regarding this patient - Culture is sensitive to cephazolin which patient is currently on. LJ Sawyer has seen patient and will change the line today. Low suspicion for cellulitis, skin erythema more likely related to irritation from dressing. Patient's PICC line replaced by Dr. Sawyer. Patient to continue antibiotics as prescribed and follow-up with specialist as discussed prior to his discharge yesterday. The patient agrees with the plan of care. Diagnostic Imaging: Viewed by Me: Ultrasound. Discussed w/RAD: Ultrasound. Radiology Impression: PATIENT: MONY LIN PRESENT AGE: 31 PATIENT ACCOUNT NO: [id number] : 83 LOCATION: [facility] ORDERING PHYSICIAN: Darwin MUSA SERVICE DATE: 09/20/17-124 EXAM TYPE: US - US- DUPLEX VENOUS EXTREM UNI EXAMINATION: US TRIPLEX UPPER EXTREMITY, RIGHT CLINICAL INFORMATION: Dislodged PICC. Right PICC line pain, redness. COMPARISON: Chest radiograph 09/17/2017. TECHNIQUE: Color-flow triplex imaging with spectral analysis and compression Doppler were performed on the lower extremity. FINDINGS : There is a right-sided PICC line in place. There is erythema underlying the sterile dressing at the PICC line insertion site. Due to the overlying dressing, the mid/distal brachial and basilic veins are not visualized. There is no evidence of DVT or thrombus within the visualized internal jugular vein, innominate vein, subclavian vein, axillary vein, proximal basilic and brachial veins or the cephalic vein is patent and compressible. The tip of the PICC line appears to terminate at the level of the right subclavian vein although this is difficult to assess under ultrasound. IMPRESSION: No evidence of DVT in the right upper extremity. The mid and distal brachial and basilic veins are not visualized due to the overlying PICC dressing. DICTATED BY: Fernando Sawyer MD DATE/TIME DICTATED:09/20/171347 SWING TYPE LATHE OPERATOR:JACIEL DATE/TIME TRANSCRIBED:09/20/171347 CONFIDENTIAL, DO NOT COPY WITHOUT APPROPRIATE AUTHORIZATION. <Electronically signed in Other Vendor System> SIGNED BY: Fernando Sawyer MD 09/20/17 1410 Initial ED EKG: none (Joanna MUSA,Kailey Adam) Departure Departure Disposition: HOME OR SELF CARE Condition: Stable Clinical Impression Primary Impression: Status post PICC central line placement Secondary Impressions: PIC line (peripherally inserted central catheter) removal Referrals: Bradford Dick MD (PCP/Family) Additional Instructions: Continue antibiotics and pain medications as prescribed. Have nurse reassess PICC line on regular basis at home. Return to the emergency Department with any worsening symptoms or other concerns. Please note that there might be incidental findings in your evaluation that are unrelated to the current emergency department visit. Please notify your primary care doctor about this emergency department visit in order to obtain and review all of the testing performed so that these incidental findings can be monitored as needed. If you had an x-ray performed, please understand that some fractures may not be seen on the initial set of x-rays. If your symptoms persist you might need a repeat set of x-rays to check for such a fracture. If you had a laceration evaluated, please understand that foreign bodies such as glass or wood may not be visible to the naked eye or on plain x-rays. If the wound becomes red, swollen, increasingly more painful or if there is any drainage from the wound, please have it reevaluated by a physician for the possibility of a retained foreign body. If you're unable to follow up as outlined in the discharge instructions please return to the emergency department. Thank you for choosing the [facility] Emergency Department for your care. It was a pleasure to serve you today. Departure Forms: Customer Survey General Discharge Information (Kailey Sosa) PA/MACHINE OPERATOR HAY STACKER Co-Sign Statement Statement: ED Attending supervision documentation- [] I saw and evaluated the patient. I have also reviewed all the pertinent lab results and diagnostic results. I agree with the findings and the plan of care as documented in the PA's/MACHINE OPERATOR HAY STACKER's documentation. [X] I have reviewed the ED Record and agree with the PA's/MACHINE OPERATOR HAY STACKER's documentation. [] Additions or exceptions (if any) to the PAs/MACHINE OPERATOR HAY STACKER's note and plan are summarized below: [] (Hemal Amaro DO) Critical Care Note Critical Care Note Critical Care Time: non-applicable (Kailey Sosa)
--- NOTE | 2017-09-20 14:10 | ULTRASOUND REPORT ---
EXAMINATION: US TRIPLEX UPPER EXTREMITY, RIGHT CLINICAL INFORMATION: Dislodged PICC. Right PICC line pain, redness. COMPARISON: Chest radiograph 09/17/2017. TECHNIQUE: Color-flow triplex imaging with spectral analysis and compression Doppler were performed on the lower extremity. FINDINGS: There is a right-sided PICC line in place. There is erythema underlying the sterile dressing at the PICC line insertion site. Due to the overlying dressing, the mid/distal brachial and basilic veins are not visualized. There is no evidence of DVT or thrombus within the visualized internal jugular vein, innominate vein, subclavian vein, axillary vein, proximal basilic and brachial veins or the cephalic vein is patent and compressible. The tip of the PICC line appears to terminate at the level of the right subclavian vein although this is difficult to assess under ultrasound. IMPRESSION: No evidence of DVT in the right upper extremity. The mid and distal brachial and basilic veins are not visualized due to the overlying PICC dressing.
[2017-09-20 15:47] VITALS: BP 109/58
--- NOTE | 2017-09-20 16:56 | INTERVENTIONAL RADIOLOGY RPT ---
PROCEDURE: RIGHT PICC LINE EXCHANGE CLINICAL INDICATION: Right PICC line pulled back, not functioning properly. PICC replacement is requested. INTERVENTIONAL RADIOLOGIST: Fernando Sawyer MD ACCESS: Indwelling right-sided PICC line. GUIDANCE: Ultrasound and Fluoroscopy (0.2 minutes) COMPLICATIONS: None. CONTRAST: None. NUMBER OF IMAGES: 3 images DESCRIPTION: The right arm and indwelling PICC line were prepped and draped. The skin at the PICC insertion site was anesthetized with 1% lidocaine. The indwelling PICC line was cut and an 0.018 guidewire was advanced through the indwelling PICC line. The wire was used to measure PICC length. The indwelling PICC was removed over the wire. A 5 [place] peel-away sheath was then placed. Subsequently, a 41 cm 5 [place] single Bard Power PICC was placed through the sheath and positioned with its tip at the right atrial junction. The PICC line was secured to the skin using a fixation device. The lumen was flushed with saline and then with heparinized saline. IMPRESSION: Successful exchange of right arm PICC line. This line is ready for use and can be used for contrast CT power injections.
== END 2017-09-20 16:56 ==
LOC: ERH 12:21
DX: T82.898A Other specified complication of vascular prosthetic devices, implants and grafts, initial encounter (principal)
CPT/HCPCS: 96374; 96375; J1642; J1885

== ENCOUNTER 2018-05-19 08:15 | Emergency (ER) | payer OTHER ==
--- NOTE | 2018-05-19 11:14 | ED GENERAL ADULT ---
History of Present Illness General Chief Complaint: General Adult Stated Complaint: SIB DR HATCH WOUND CHECK S/P SPINAL INFUSION Source: patient, old records Exam Limitations: no limitations Vital Signs & Intake/Output Vital Signs & Intake/Output Vital Signs Date Time Temp Pulse Resp B/P B/P Pulse O2 O2 Flow FiO2 Mean Ox Delivery Rate 05/19 1332 97.9 60 16 111/57 97 Room Air 05/19 1022 98.7 87 18 138/83 99 Room Air 05/19 0821 97.5 75 16 113/73 97 Room Air Allergies Coded Allergies: No Known Allergies (06/17/17) Reconcile Medications Azilsartan Med/Chlorthalidone (Edarbyclor 40-12.5 MG Tablet) 40 MG-12.5 MG TABLET 1 TAB PO DAILY BP (Reported) NOT GIVEN IN HOSPITAL, [place] AND CHLORTHIADONE GIVEN SEPARATELY Celecoxib (Celebrex) 200 MG CAPSULE 1 CAP PO DAILY PAIN (Reported) Cyclobenzaprine HCl 10 MG TABLET 1 TAB PO QPM MUSCLE (Reported) Diazepam (Valium) 5 MG TABLET 1 TAB PO TIDPRN PRN spasm Gabapentin (Neurontin) 300 MG CAPSULE 1 CAP PO TID PAIN (Reported) Metaxalone 800 MG TABLET 1 TAB PO TID PRN MUSCLE (Reported) Oxycodone HCl 10 MG TABLET 1 TAB PO 5 TIMES A DAY PAIN (Reported) Triage Note: PT TO ED FOR WOUND CHECK TO HIS SPINAL FUSION. HAS NEEDED DEBRIDMENT SX IN PAST. WAS ON VACATION LAST WEEK AND INCISION OPENED UP. FEELS LIKE THE SAME WHEN IT OPENED UP LAST TIME AND NEEDED SX. HAS FELT NAUSEOUS AND LETHARGIC WELL. SEES DR HATCH, HAS AN ORDER FORM WITH HIM FROM DR HATCH "IN CASE I NEEDED TO COME TO THE ER AT ANYTIME." Triage Nurses Notes Reviewed? yes HPI: This is a 32-year-old male with history of chronic back pain status post multiple lumbar procedures/surgeries complicated by infection in the past presented to the emergency department with worsening pain and drainage from the wound site. Patient states that the pain has been worsening for the past 2 months, radiates to the right leg. Also notes that this past week there was a pustule to the center of the wound which drained purulent/bloody material. Denies any fever endorses decreased appetite. Pain has been recalcitrant to p.o. oxycodone, gabapentin. Patient told by his spine surgeon Dr. Hatch to seek care in the emergency department. He denies any chest pain or difficulty breathing. He has had no fever, chills, nausea, vomiting, diarrhea. Denies any urinary retention or difficulty defecating. Past History Travel History Traveled to [place] past 21 day No Medical History Any Pertinent Medical History? 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 No Review of Systems Review of Systems Constitutional: Reports: no symptoms. Musculoskeletal: Reports: back pain. All Other Systems: Reviewed and Negative Physical Exam Physical Exam General Appearance: well developed/nourished, no apparent distress Head: atraumatic, normal appearance Eyes: Bilateral: normal appearance. Ears, Nose, Throat: normal pharynx, normal ENT inspection Neck: normal inspection, supple, full range of motion Respiratory: no respiratory distress Cardiovascular: regular rate/rhythm, normal peripheral pulses Gastrointestinal: soft, non-tender Comments: Uncomfortable appearing young man, no acute distress. Midline lumbar incision/ scar is clean, dry with crusting pustule to the center. No active discharge, no surrounding erythema, no tenderness. Intact sensation and strength right lower and left lower extremity. Pain with straight leg raise to right side. No saddle anesthesia Core Measures ACS in differential dx? No CVA/TIA Diagnosis: No Sepsis Present: No Sepsis Focused Exam Completed? No Progress Differential Diagnoses I considered the following diagnoses in my evaluation of the patient: Recurrent spinal infection/abscess, occult fracture, low suspicion for cauda equina; doubt acute metabolic derangement. Doubt acute intrathoracic or intra-abdominal infection. Plan of Care: Orders Procedure Date/time Status BLOOD CULTURE 05/19 1133 Active HIGH SENSITIVITY CRP 05/19 1133 Complete WESTERGREN SED RATE 05/19 1133 Complete COMPREHENSIVE METABOLIC PANEL 05/19 113 Complete CBC WITHOUT DIFFERENTIAL 05/19 113 Complete Current Medications Sig/Vane Start time Last Medication Dose Stop Time Status Admin Morphine Sulfate 4 MG ONCE ONE 05/19 1815 AC (MORPHINE SULFATE) 05/19 1816 Laboratory Tests 05/19/18 1309: Anion Gap 7, Estimated GFR > 60, BUN/Creatinine Ratio 20.0, Glucose 99, Calcium 10.1, Total Bilirubin 0.7, AST 35, ALT 20 L, Alkaline Phosphatase 47, C-React Prot High Sens 0.3 L, Total Protein 7.8, Albumin 4.8, Globulin 3.0, Albumin/ Globulin Ratio 1.6, CBC w Diff NO MAN DIFF REQ, RBC 4.06 L, MCV 97.3 H, MCH 33.9 H, MCHC 34.8, RDW 12.9, MPV 7.1 L, Gran % 66.9, Lymphocytes % 25.7, Monocytes % 4.1, Eosinophils % 1.7, Basophils % 1.6, Absolute Granulocytes 5.2, Absolute Lymphocytes 2.0, Absolute Monocytes 0.3, Absolute Eosinophils 0.1, Absolute Basophils 0.1, ESR [facility] 5 Microbiology 05/19 1348 BLOOD: Blood Culture - RECD 05/19 1301 BLOOD: Blood Culture - RECD Plan for labs, pain control, MRI with and without gadolinium of the lumbar spine , surgical consultation. Inflammatory markers are not elevated. MRI shows no acute obvious infectious process. Imaging reviewed with Jonathan Hatch MD. He agrees that patient should be discharged home with plan for follow-up at his office on Saturday night or Saturday. Patient amenable to plan, discharge home with return precautions and follow-up instructions. He is well-appearing reassessment Initial ED EKG: none Departure Departure Time of Disposition: 1810 Disposition: HOME OR SELF CARE Condition: Stable Clinical Impression Primary Impression: Lumbar back pain Referrals: Bradford Dick MD (PCP/Family) Additional Instructions: Thank you for coming to the [facility] today. As we discussed, it is very important that you follow-up with Jonathan Hatch MD on Saturday or Saturday. Return to the emergency department if your symptoms worsen or he develop any new concerning symptoms such as fever, shortness of breath, difficulty urinating or going to the bathroom. Departure Forms: Customer Survey General Discharge Information Critical Care Note Critical Care Note Critical Care Time: non-applicable
[2018-05-19] MEDS ORDERED: CELEBREX200 M1 PO (11:41)
[2018-05-19] MEDS ORDERED: CYCLOBENZAPRINE10 M1 PO (11:42)
[2018-05-19] MEDS ORDERED: METAXALONE800 M1 PO (11:42)
[2018-05-19] MEDS ORDERED: OXYCODONE HCL10 M2 PO (11:44)
[2018-05-19 13:23] LABS: ABSOLUTE BASOPHIL COUNT 0.1 /CUMM (0.0-0.2); ABSOLUTE EOSINOPHIL COUNT 0.1 /CUMM (0.0-0.7); ABSOLUTE GRANULOCYTE CT 5.2 /CUMM (1.4-6.5); ABSOLUTE MONOCYTE COUNT 0.3 /CUMM (0.10-0.60); BASOPHIL % 1.6 % (0.0-2.0); EOSINOPHIL % 1.7 % (0-5); GRANULOCYTE % 66.9 % (42.2-75.2); HEMATOCRIT 39.5 % (42-52); MEAN CORPUSCULAR HGB 33.9 PG (27.0-31.0); MEAN CORPUSCULAR HGB CONC 34.8 G/DL (33.0-37.0); MEAN CORPUSCULAR VOLUME 97.3 FL (80.0-94.0); MEAN PLATELET VOLUME 7.1 FL (7.4-10.4); PLATELET COUNT 365 /CUMM (130-400); RBC DISTRIBUTION WIDTH 12.9 % (11.5-14.5); RED BLOOD CELL CT 4.06 /CUMM (4.70-6.10); WHITE BLOOD CELL COUNT 7.8 /CUMM (4.8-10.8)
--- NOTE | 2018-05-19 17:02 | MRI REPORT ---
EXAMINATION: MR LUMBAR SPINE WITHOUT AND WITH CONTRAST CLINICAL INFORMATION: Pain. Drainage. Reported lumbar abscess. COMPARISON: MRI dated 11/21/2017. TECHNIQUE: MRI of the lumbar spine was obtained before and after intravenous administration of 8 mL Gadavist. FINDINGS: VERTEBRAL BODIES AND PARASPINAL STRUCTURES: Postsurgical change is again visible at L4-L5 and L5-S1 with laminectomy defects and partial facetectomies with interbody prostheses in place. Extensive heterogeneous signal and enhancement present in the soft tissues posteriorly, presumably reflecting scar and granulation tissue. No discrete drainable fluid collection is seen; evaluation is somewhat limited due to patient motion artifacts. There is a stable minimal posterior subluxation at L4-L5. The remaining discs are well hydrated. The marrow signal is homogeneous. There are no anterior subluxations or compression fractures. Left-sided sigmoid colonic diverticulosis partially seen. CONUS MEDULLARIS AND CAUDA EQUINA: Normal, terminating at the level of L1. No lower cord signal abnormality is seen. The cauda equina nerve roots appear normal. There is no pathologic leptomeningeal enhancement. SPINAL LEVELS: L1-L2, L2-L3, and L3-L4: No disc pathology. No central canal stenosis or foraminal narrowing. L4-L5: Interbody fusion device in place with a residual mild disc bulge and left subarticular zone annular fissure, similar to the prior study. No new disc protrusion. Moderate facet arthropathy without central canal stenosis or worsened foraminal narrowing. Stable left foraminal narrowing. L5-S1: Interbody fusion device in place with stable spondylosis and postsurgical changes. No new disc protrusion, central canal stenosis, or worsened foraminal narrowing. Stable right foraminal narrowing. IMPRESSION: Relatively stable postsurgical changes compared to prior imaging. No new large fluid collection in the operative bed which demonstrates heterogeneous soft tissue enhancement. Stable alignment.
[2018-05-19 18:41] VITALS: BP 118/78
== END 2018-05-19 18:52 ==
LOC: ERH 08:15
PROVIDERS: Student in an Organized Health Care Education/Training Program
DX: M54.5 Low back pain (principal); I10 Essential (primary) hypertension; F17.210 Nicotine dependence, cigarettes, uncomplicated
CPT/HCPCS: 72149; 72158; 87040; 96374; 96375; 96376; A9579; J2405